=== PATIENT | male | born 1975 | race Caucasian/White ===

== ENCOUNTER 2016-08-01 20:04 | Emergency (ER) | payer MEDICAID, OTHER ==
[~2016-08-01] VITALS: Ht 165.1 cm; Wt 97.5 kg
[~2016-08-01 20:04] MED LIST: /FENO14TA PO; ASPI325T PO; ASPI81CH PO; BLOOKIT20 XX; CELE20TA PO; DEPA500T2 PO; GEMF600T PO; GLIP10TA6 PO; GLUC500T PO; GLUC5TAB3 PO; HUMA100I3 SC; INSUHUMDS SC; INSULADS SC; INSULANT SC; LOPI600T PO; METF500T PO; NIAS1TAB PO; OMEG100011 PO; PERCOCET PO; TRIC145T PO; ZEST2.5T3 PO
[2016-08-01] MEDS ORDERED: ASPIRIN 81 MG CHEW TABLET As Ordered ONE (20:30)
[2016-08-01 20:42] LABS: BASO # 0.1 K/mm3 (0.0-0.2); BASO % 0.5 % (0.0-1.0); EOS # 0.3 K/mm3 (0.0-0.50); LARGE UNSTAINED CELL # 0.3 K/mm3 (0.0-0.4); LARGE UNSTAINED CELL % 1.5 % (0.0-4.0); LYMPH # 3.6 K/mm3 (1.5-4.5); LYMPH % 21.6 % (24.0-44.0); MEAN CORPUSCULAR VOLUME 84.4 fl (80.0-96.0); MONO # 0.6 K/mm3 (0.0-0.8); MONO % 3.6 % (0.0-5.0); NEUTROPHILS # 11.7 K/mm3 (1.8-7.7); NEUTROPHILS % 70.9 % (36.0-66.0); PLATELET COUNT, AUTOMATED 431 k/mm3 (150-450); RED CELL DISTRIBUTION WIDTH 13.5 % (11.5-14.5); WHITE BLOOD COUNT 16.5 K/mm3 (4.0-10.0)
[2016-08-01 20:43] LABS: MEAN CORPUSCULAR HGB CONC 33.7 g/dl (32.0-36.5)
[2016-08-01 20:44] LABS: MEAN CORPUSCULAR HEMOGLOBIN 28.5 pg (27.0-33.0)
[2016-08-01 21:09] LABS: ANION GAP 19 MEQ/L (8-16); CARBON DIOXIDE LEVEL 13 MEQ/L (21-32); CHLORIDE LEVEL 94 MEQ/L (98-107); CREATININE FOR GFR 1.28 MG/DL (0.70-1.30); GLOMERULAR FILTRATION RATE > 60.0 (>60); SODIUM LEVEL 126 MEQ/L (136-145)
[2016-08-01] MEDS ORDERED: MORPHINE 4 MG/ML 1ML SYRINGE As Ordered ONE (21:21)
[2016-08-01] MEDS ORDERED: ONDANSETRON 4MG/2ML VIAL (J2405) As Ordered ONE (21:21)
[2016-08-01 21:22] LABS: GLUCOSE, FASTING 539 MG/DL (70-105)
[2016-08-01] MEDS ORDERED: HumuLIN R (REGULAR) INSULIN (NovoLIN R) **100U/ML** PER UNIT As Ordered ONE (21:41)
[2016-08-01 22:37] LABS: ALBUMIN 3.3 GM/DL (3.2-5.2); ALBUMIN/GLOBULIN RATIO 1.06 (1.00-1.93); BLOOD UREA NITROGEN 21 MG/DL (7-18); TOTAL PROTEIN 6.4 GM/DL (6.4-8.2)
--- NOTE | 2016-08-01 22:40 | REPUSA ---
CLINICAL HISTORY: Biliary colic. TECHNIQUE: Realtime sonographic images were obtained in multiple projections. COMMENTS: The liver is of normal size, parenchyma demonstrates increased echogenicity. No discrete hepatic mass is seen. There is no intra or extrahepatic biliary ductal dilatation. CBD measures 3.8 mm. The gallbladder is partially contracted otherwise unremarkable. The gallbladder wall is not thickened and there is no pe richolecystic fluid. There is no abdominal ascites. The right kidney measures 13.1 cm and unremarkable. IMPRESSION: Echogenic liver noted which may be secondary to benign steatosis or chronic liver disease. Thank you for your kind referral of this patient.
[2016-08-01 22:42] LABS: ALKALINE PHOSPHATASE 123 U/L (45-117); AST/SGOT 43 U/L (15-37)
[2016-08-01 23:31] LABS: ANION GAP 9 MEQ/L (8-16); CARBON DIOXIDE LEVEL 23 MEQ/L (21-32); CHLORIDE LEVEL 97 MEQ/L (98-107); CREATININE FOR GFR 1.18 MG/DL (0.70-1.30); GLOMERULAR FILTRATION RATE > 60.0 (>60); SODIUM LEVEL 129 MEQ/L (136-145)
[2016-08-01 23:58] LABS: BLOOD UREA NITROGEN 21 MG/DL (7-18); CALCIUM LEVEL 7.6 MG/DL (8.5-10.1)
[2016-08-01 23:59] LABS: GLUCOSE, FASTING 485 MG/DL (70-105)
[2016-08-02] LABS: POTASSIUM SERUM 4.3 MEQ/L (3.5-5.1)
[2016-08-02] MEDS ORDERED: PERCOCET 5MG/325MG TAB As Ordered ONE ×2 (00:20→02:02)
[2016-08-02] MEDS ORDERED: GI COCKTAIL 50ML BTL(HYOSCYAMINE/MAALOX/LIDOCAINE VISCOUS)(1:3:1) As Ordered ONE (01:02)
[2016-08-02] MEDS ORDERED: NIAC1TAB PO (01:33)
[2016-08-02] MEDS ORDERED: RANI150T PO (01:33)
[2016-08-02] MEDS ORDERED: FISH1000 PO ×2 (01:33)
[2016-08-02] MEDS ORDERED: METF1000 PO (01:33)
[2016-08-02] MEDS ORDERED: FENO134C PO (01:33)
[2016-08-02] MEDS ORDERED: INSUDET SC (01:33)
[2016-08-02] MEDS ORDERED: OXYCODONE/APAP 5MG/325MG(BULK) 1 TAB TAB As Ordered ONE (02:31)
--- NOTE | 2016-08-02 02:43 | EDDOCDS ---
Nurse's Notes [facility] Name: Grover Lee Age: 41 yrs Sex: Male : 1975 Arrival Date: 08/01/2016 Time: 20:04 Bed Admit Hold Private MD: Israel Eason M. Diagnosis: Chest pain, unspecified;Generalized abdominal pain;Hyperglycemia, unspecified Presentation: 08/01 20:13 Presenting complaint: Patient states: chest pressure started last night, thought it was [facility] indigestion but it hasn't gone away. Mid central 01/28. Aspirin was not taken prior to arrival. Adult Sepsis Screening: The patient does not have new or worsening altered mentation. Patient's respiratory rate is less than 22. Systolic blood pressure is greater than 100. Patient has a qSOFA score of 0- Negative Sepsis Screen. Suicide/Homicide risk assessment- the patient denies having any suicidal and/or homicidal ideations and does not present with any other emotional, behavioral or mental health complaints. 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 Transition of care: patient was not received from another setting of care. 20:13 Acuity: ALEKSANDR Level 2 [facility] 20:13 Method Of Arrival: Walkin/Carried/Asstd [facility] Triage Assessment: 20:18 General: Appears in no apparent distress, Behavior is cooperative. Pain: Location: [facility] chest Pain currently is 7 out of 10 on a pain scale. HIV screening NA for this visit Offered previously. Cardiovascular: Chest pain is described as Pain is 6 out of 10 on a pain scale. radiates Does not radiate. episodes are continuous began last night. Respiratory: Airway is patent Respiratory effort is even, unlabored, Respiratory pattern is regular, symmetrical. Historical: - Allergies: no known allergies; - Home Meds: 1. aspirin 325 mg Oral tab 1 tab once daily (Last dose: 07/31/2016) 2. gemfibrozil 600 mg Oral tab 1 tab 2 times per day (Last dose: 08/01/2016 09:00) 3. Humalog 100 unit/mL Sub-Q soln (Last dose: 07/31/2016) 4. metformin 1,000 mg oral tab 2 times per day (Last dose: 08/01/2016 09:00) 5. Niaspan Extended-Release 500 mg oral Tb24 1 tab once daily (Last dose: 07/31/2016) 6. fenofibrate oral 134 mg oral nightly (Last dose: 07/31/2016) 7. Fish Oil 1,000 mg Oral cap three times a day (Last dose: 08/01/2016 09:00) 8. ranitidine HCl 150 mg Oral tab 1 tab 2 times per day (Last dose: 08/01/2016 09:00) 9. Levomer 36 units twice daily (Last dose: 08/01/2016 09:00) - PMHx: Diabetes - IDDM: controlled; Hypercholesterolemia; Hypertension; Pancreatitis; - PSHx: Hernia repair- Umbilical; - Social history: Smoking status: Patient uses tobacco products, light tobacco smoker. No barriers to communication noted. - Family history: Not pertinent. - : The pt / caregiver states he / she is not on anticoagulants. Home medication list is obtained from the patient, family members. - Exposure Risk Screening:: None identified. Screenin:02 Screening information is obtained from the patient. Fall risk: No risks identified. cf2 Assistance ADL's: requires no assistance with activities of daily living. Abuse/DV Screen: The patient / caregiver reports he/she is: not in a situation that causes fear, pain or injury. Nutritional screening: No deficits noted. Advance Directives: Further advance directive information is declined. home support is adequate. Assessment: 21:02 General: Appears in no apparent distress, comfortable, Behavior is appropriate for age, cf2 cooperative. Pain: Location: abdomen. Neurological: No deficits noted. EENT: No deficits noted. Cardiovascular: Rhythm is sinus rhythm. Respiratory: No deficits noted. GI: No deficits noted. : No deficits noted. Derm: No deficits noted. Musculoskeletal: No deficits noted. Injury Description: No known injury. 21:29 General:. cf2 08/02 02:40 Reassessment: Patient appears in no apparent distress at this time. Patient denies pain cf2 at this time. Patient states feeling better. Patient states symptoms have improved. Adult Sepsis Screening: The patient does not have new or worsening altered mentation. Patient's respiratory rate is less than 22. Systolic blood pressure is greater than 100. Patient has a qSOFA score of 0- Negative Sepsis Screen. Vital Signs: 08/01 20:06 BP 157 / 88; Pulse 94; Resp 16; Temp 98.8(O); Pulse Ox 95% ; Weight 97.52 kg; Height 5 cmb ft. 5 in. (165.10 cm); Pain 7/10; 08/02 02:33 BP 151 / 75; Pulse 18; Resp 94; Temp 96.7(O); Pulse Ox 96% on R/A; Pain 0/10; leena 08/01 20:06 Body Mass Index 35.78 (97.52 kg, 165.10 cm) cmb Vitals: 08/01 20:06 Log In Time: August 01, 2016 at 20:04. RN notified that patient meets Red Flag cmb criteria. ED Course: 20:06 Patient visited by Melina Sanders. cmb 20:06 Israel Eason is Private Physician. cmb 20:06 Patient moved to [facility] 20:11 Patient moved to [facility] 20:14 Triage Initiated [facility] 20:20 The patient / caregiver is instructed regarding the plan of care and ED course. Patient dsf has correct armband on for positive identification. Placed in gown. Bed in low position. Call light in reach. Side rails up X2. monitoring engineer on. Pulse ox on. NIBP on. 20:20 Inserted saline lock: 18 gauge in right antecubital area The patient tolerated the dsf procedure well. 20:23 Rajani Hardy RN is Primary Nurse. cf2 20:23 Funmilayo Chavarria MD is Attending Physician. fg 20:23 Patient visited by Rajani Hardy RN. cf2 20:23 Patient visited by Funmilayo Chavarria MD. fg 20:29 EKG done. (by ED staff). Reviewed by Funmilayo Chavarria MD. leena 21:02 Patient visited by Rajani Hardy,MASTER. cf2 21:02 No procedures done that require assistance. cf2 21:23 Notified attending ED physician of change in patient condition. Critical lab value. cz glucose 539. 21:29 Patient visited by Rajani Hardy RN. cf2 21:39 Patient visited by Rajani Hardy,MASTER. cf2 21:42 Patient moved to [facility] br3 21:56 Patient visited by Rajani Hardy RN. cf2 22:08 Patient moved to br 22:09 LIVER PROFILE Sent. dsf 22:09 LIPASE Sent. dsf 22:15 Patient name changed from Grover\S\\S\[place]\S\ to Grover\S\ \S\Jesus. EDMS 22:15 [place] [place] Agreement was scanned into [employer] and attached to record. zo 22:34 Patient visited by Rajani Hardy RN. cf2 22:50 BMP Sent. cf2 23:36 Patient visited by Rajani Hardy RN. cf2 23:47 US Gallbladder Returned. EDMS 23:56 Patient visited by Rajani Hardy RN. cf2 08/02 00:00 Notified attending ED physician of Critical lab value. glucose 485. cz 00:27 Salma Eason is Hospitalizing Provider. fg 00:29 Patient moved to Admit Hold cz 01:25 Patient visited by Rajani Hardy RN. cf2 02:00 Patient visited by Rajani Hardy RN. cf2 02:07 Patient visited by Rajani Hardy RN. cf2 02:20 Israel Eason is Referral Physician. fg 02:33 Patient visited by Alessandra Lal PCA. leena 02:40 Discontinued lock. cf2 Administered Medications: 08/01 20:40 Drug: Aspirin 324 mg [aspirin 81 mg chewable tablet (4 tabs)] Route: PO; cf2 21:24 Drug: morphine 4 mg [morphine 4 mg/mL intravenous cartridge (1 mL)] Route: IVP; Site: cf2 left antecubital; 08/02 02:40 Follow up: Response: No significant change. cf2 08/01 21:24 Drug: Ondansetron 4 mg Route: IVP; Site: left antecubital; cf2 08/02 02:08 Follow up: Response: Pain is decreased cf2 08/01 21:39 Drug: NS 0.9% 1000 ml [sodium chloride 0.9 % intravenous solution] Route: IV; Rate: cf2 bolus; Site: left antecubital; 21:40 Drug: Insulin Regular Human 10 units [insulin regular human 100 unit/mL injection cf2 solution (0.1 mL)] {Co-Signature: jp6 (Jaci Pennington RN).} Route: IVP; Site: left antecubital; 01/12 02:08 Follow up: Response: No significant change. cf2 00:20 Drug: oxyCODONE-acetaminophen 1 tabs [oxycodone-acetaminophen 5 mg-325 mg tablet (1 cf2 tabs)] Route: PO; 02:08 Follow up: Response: Pain is decreased cf2 01:05 Drug: GI Cocktail - (Alum-Mag Hydroxide-Simeth Suspension 225 mg-200 mg-25 mg/5 mL 30 cf2 ml, Lidocaine Liquid 2 % 10 ml, Hyoscyamine Liquid 10 ml) Route: PO; 02:07 Follow up: Response: No significant change. cf2 02:07 Drug: oxyCODONE-acetaminophen 1 tabs [oxycodone-acetaminophen 5 mg-325 mg tablet (1 cf2 tabs)] Route: PO; 02:40 Follow up: Response: No significant change. cf2 02:33 Drug: oxyCODONE-acetaminophen 4 pack 1 packets [oxycodone-acetaminophen 5 mg-325 mg cf2 tablet (1 tabs)] {Co-Signature: jp6 (Jaci Pennington RN).} Route: PO; 02:40 Follow up: Response: No Adverse Reaction cf2 Order Results: Lab Order: B-Type Natiuretic Peptide; SPEC'M 08/01/16 20:13 Test: BRAIN NATRIURETIC PEPTIDE; Value: 5.7; Range: <100; Units: PG/ML; Status: F Lab Order: Basic Metabolic Profile; SPEC'M 08/01/16 20:13 Test: AST/SGOT; Range: 15-37; Units: U/L; Status: I Test: ALT/SGPT; Range: 12-78; Units: U/L; Status: I Test: ALKALINE PHOSPHATASE; Range: 45-117; Units: U/L; Status: I Test: BILIRUBIN,TOTAL; Range: 0.2-1.0; Units: MG/DL; Status: I Test: BILIRUBIN,DIRECT; Range: 0.0-0.2; Units: MG/DL; Status: I Test: TOTAL PROTEIN; Range: 6.4-8.2; Units: GM/DL; Status: I Test: ALBUMIN; Range: 3.2-5.2; Units: GM/DL; Status: I Test: ALBUMIN/GLOBULIN RATIO; Range: 1.00-1.93; Status: I Test: GLUCOSE, FASTING; Value: 539; Range: 70-105; Abnormal: Above upper panic limits; Units: MG/DL; Status: F Test: BLOOD UREA NITROGEN; Value: 21; Range: 7-18; Abnormal: Above high normal; Units: MG/DL; Status: F Test: CREATININE FOR GFR; Value: 1.28; Range: 0.70-1.30; Units: MG/DL; Status: F Test: GLOMERULAR FILTRATION RATE; Value: > 60.0; Range: >60; Status: F Test: SODIUM LEVEL; Value: 126; Range: 136-145; Abnormal: Below low normal; Units: MEQ/L; Status: F Test: POTASSIUM SERUM; Value: 4.0; Range: 3.5-5.1; Units: MEQ/L; Status: F Test: CHLORIDE LEVEL; Value: 94; Range: 98-107; Abnormal: Below low normal; Units: MEQ/L; Status: F Test: CARBON DIOXIDE LEVEL; Value: 13; Range: 21-32; Abnormal: Below low normal; Units: MEQ/L; Status: F Test: ANION GAP; Value: 19; Range: 8-16; Abnormal: Above high normal; Units: MEQ/L; Status: F Test: CALCIUM LEVEL; Value: TNP; Range: 8.5-10.1; Units: MG/DL; Status: F Test Note: ; Units are mL/min/1.73 m2 Chronic Kidney Disease Staging per NKF: Stage I & II GFR >=60 Normal to Mildly Decreased Stage III GFR 30-59 Moderately Decreased Stage IV GFR 15-29 Severely Decreased Stage V GFR <15 Very Little GFR Left ESRD GFR <15 on BANDER Test: LIPASE; Range: 73-393; Units: U/L; Status: I Lab Order: CBC with Diff; SPEC'M 08/01/16 20:13 Test: WHITE BLOOD COUNT; Value: 16.5; Range: 4.0-10.0; Abnormal: Above high normal; Units: K/mm3; Status: F Test: RED BLOOD COUNT; Value: 4.74; Range: 4.30-6.10; Units: M/mm3; Status: F Test: HEMOGLOBIN; Value: 13.5; Range: 14.0-18.0; Abnormal: Below low normal; Units: g/dl; Status: F Test: HEMATOCRIT; Value: 40.0; Range: 42.0-52.0; Abnormal: Below low normal; Units: %; Status: F Test: MEAN CORPUSCULAR VOLUME; Value: 84.4; Range: 80.0-96.0; Units: fl; Status: F Test: MEAN CORPUSCULAR HEMOGLOBIN; Value: 28.5; Range: 27.0-33.0; Units: pg; Status: F Test: MEAN CORPUSCULAR HGB CONC; Value: 33.7; Range: 32.0-36.5; Units: g/dl; Status: F Test: RED CELL DISTRIBUTION WIDTH; Value: 13.5; Range: 11.5-14.5; Units: %; Status: F Test: PLATELET COUNT, AUTOMATED; Value: 431; Range: 150-450; Units: k/mm3; Status: F Test: NEUTROPHILS %; Value: 70.9; Range: 36.0-66.0; Abnormal: Above high normal; Units: %; Status: F Test: LYMPH %; Value: 21.6; Range: 24.0-44.0; Abnormal: Below low normal; Units: %; Status: F Test: MONO %; Value: 3.6; Range: 0.0-5.0; Units: %; Status: F Test: EOS %; Value: 2.0; Range: 0.0-3.0; Units: %; Status: F Test: BASO %; Value: 0.5; Range: 0.0-1.0; Units: %; Status: F Test: LARGE UNSTAINED CELL %; Value: 1.5; Range: 0.0-4.0; Units: %; Status: F Test: NEUTROPHILS #; Value: 11.7; Range: 1.8-7.7; Abnormal: Above high normal; Units: K/mm3; Status: F Test: LYMPH #; Value: 3.6; Range: 1.5-4.5; Units: K/mm3; Status: F Test: MONO #; Value: 0.6; Range: 0.0-0.8; Units: K/mm3; Status: F Test: EOS #; Value: 0.3; Range: 0.0-0.50; Units: K/mm3; Status: F Test: BASO #; Value: 0.1; Range: 0.0-0.2; Units: K/mm3; Status: F Test: LARGE UNSTAINED CELL #; Value: 0.3; Range: 0.0-0.4; Units: K/mm3; Status: F Lab Order: Cardiac Injury Profile; SPEC08/01/16 20:13 Test: CPK CREATINE PHOSPHOKINASE; Value: 106; Range: 39-308; Units: U/L; Status: F Test: CK-MB VALUE MASS; Value: 1.0; Range: 0.0-3.6; Units: NG/ML; Status: F Test: MB/CK RELATIVE INDEX; Value: 0.94; Range: < OR =4; Status: F Test Note: ; DIAGNOSIS CRITERIA MMB ng/ml Relative Index (RI) NON-AMI < or = 5 N/A BENJAMIN ZONE > 5 < or = 4 AMI > 5 > 4 Lab Order: Troponin; 08/01/16 20:13 Test: TROPONIN I; Value: < 0.02; Range: < 0.10; Units: NG/ML; Status: F Test Note: ; Troponin I Reference Interval for A Green Night's Sleep LOCI: 99th Percentile= 0.00-0.045 ng/ml Risk Stratification: <= 0.10 ng/ml Decreased Risk for Adverse Clinical Events. 0.10-1.50 ng/ml Increased Risk for Adverse Clinical Events. Evaluation of additional criterion and/or repeat testing in 2-6 hours is suggested to rule out myocardial damage. >= 1.50 ng/ml Indicative of Myocardial Injury. Lab Order: LIPASE; SPEC08/01/16 20:13 Test: LIPASE; Value: 180; Range: 73-393; Units: U/L; Status: F Lab Order: LIVER PROFILE; 08/01/16 20:13 Test: AST/SGOT; Value: 43; Range: 15-37; Abnormal: Above high normal; Units: U/L; Status: F Test: ALT/SGPT; Value: TNP; Range: 12-78; Units: U/L; Status: F Test: ALKALINE PHOSPHATASE; Value: 123; Range: 45-117; Abnormal: Above high normal; Units: U/L; Status: F Test: BILIRUBIN,TOTAL; Value: TNP; Range: 0.2-1.0; Units: MG/DL; Status: F Test: BILIRUBIN,DIRECT; Value: TNP; Range: 0.0-0.2; Units: MG/DL; Status: F Test: TOTAL PROTEIN; Value: 6.4; Range: 6.4-8.2; Units: GM/DL; Status: F Test: ALBUMIN; Value: 3.3; Range: 3.2-5.2; Units: GM/DL; Status: F Test: ALBUMIN/GLOBULIN RATIO; Value: 1.06; Range: 1.00-1.93; Status: F Test Note: ; Testing was performed on a lipemic specimen. Suggest recollection of a FASTING specimen for more accurate test results. UNABLE TO OBTAIN RESULTS DUE TO LIPEMIA Lab Order: [facility]; SPEC'M 08/01/16 23:06 Test: GLUCOSE, FASTING; Value: 485; Range: 70-105; Abnormal: Above upper panic limits; Units: MG/DL; Status: F Test: BLOOD UREA NITROGEN; Value: 21; Range: 7-18; Abnormal: Above high normal; Units: MG/DL; Status: F Test: CREATININE FOR GFR; Value: 1.18; Range: 0.70-1.30; Units: MG/DL; Status: F Test: GLOMERULAR FILTRATION RATE; Value: > 60.0; Range: >60; Status: F Test: SODIUM LEVEL; Value: 129; Range: 136-145; Abnormal: Below low normal; Units: MEQ/L; Status: F Test: POTASSIUM SERUM; Value: 4.3; Range: 3.5-5.1; Units: MEQ/L; Status: F Test: CHLORIDE LEVEL; Value: 97; Range: 98-107; Abnormal: Below low normal; Units: MEQ/L; Status: F Test: CARBON DIOXIDE LEVEL; Value: 23; Range: 21-32; Units: MEQ/L; Status: F Test: ANION GAP; Value: 9; Range: 8-16; Units: MEQ/L; Status: F Test: CALCIUM LEVEL; Value: 7.6; Range: 8.5-10.1; Abnormal: Below low normal; Units: MG/DL; Status: F Test Note: ; Testing was performed on a lipemic specimen. Suggest recollection of a FASTING specimen for more accurate test results. Lab Order: Fingerstick Blood Sugar; SPEC'M 08/01/16 22:46 Test: BEDSIDE GLUCOSE; Value: 317; Range: 70-105; Abnormal: Above high normal; Units: MG/DL; Status: F Lab Order: Fingerstick Blood Sugar; SPEC'M 08/02/16 00:08 Test: BEDSIDE GLUCOSE; Value: 271; Range: 70-105; Abnormal: Above high normal; Units: MG/DL; Status: F Radiology Order: US Gallbladder Test: US Gallbladder REASON FOR EXAMINATION: Biliary Colic; ; CLINICAL HISTORY: Biliary colic.; TECHNIQUE: Realtime sonographic images were obtained in multiple projections.; COMMENTS:; The liver is of normal size, parenchyma demonstrates increased echogenicity. No discrete hepatic mass; is seen.; There is no intra or extrahepatic biliary ductal dilatation. CBD measures 3.8 mm. The gallbladder is; partially contracted otherwise unremarkable. The gallbladder wall is not thickened and there is no pe; richolecystic fluid. There is no abdominal ascites.; The right kidney measures 13.1 cm and unremarkable.; IMPRESSION:; Echogenic liver noted which may be secondary to benign steatosis or chronic liver disease.; Thank you for your kind referral of this patient.; ; Outcome: 00:28 Decision to Hospitalize by Provider. fg 02:21 Discharge ordered by Provider. fg 02:40 Discharge Assessment: Patient awake, alert and oriented x 3. No cognitive and/or cf2 functional deficits noted. Patient verbalized understanding of disposition instructions. Patient awake and alert. Oriented to person, place and time. Patient verbalized understanding of disposition instructions. patient administered narcotics - yes. Pt provided with safe discharge. The following High Risk Discharge criteria are identified: None. Discharged to home. Condition: good Condition: stable Condition: improved. Discharge instructions given to patient, Instructed on discharge instructions, Demonstrated understanding of instructions, medications, Prescriptions given X 2. CT Study completed. Ultrasound Study completed. Property :Personal belongings accompany Pt. 02:42 Patient left the ED. cf2 Signatures: Dispatcher [employer] EDMS Taj Lawrence RN RN cz Olin, Zoeann zo Raymond, Brianne br3 Hali, Alessandra, BOATWRIGHT BOATWRIGHT leena Josee Garcia,RN RN Amarilis Redman,RN RN rosa maria Melina Sanders Frances, MD MD Rajani Hardy RN RN cf2 Jaci Pennington RN [email or web address] MATTD
--- NOTE | 2016-08-02 02:43 | EDDOCDS ---
Physician Documentation [facility] Name: Grover Lee Age: 41 yrs Sex: Male : 1975 Arrival Date: 08/01/2016 Time: 20:04 Bed Admit Hold Private MD: Israel Eason M. Disposition: 08/02/16 02:21 Discharged to Home/Self Care. Impression: Chest pain, unspecified, Generalized abdominal pain, Hyperglycemia, unspecified. - Condition is Stable. - Discharge Instructions: Abdominal Pain, Adult, Nonspecific Chest Pain, Hyperglycemia, Wldr-oo-Laim. - Prescriptions for omeprazole 40 mg Oral capsule,delayed release(DR/EC) - take 1 capsule by ORAL route once daily before a meal; 30 capsule. - Medication Reconciliation, Local Pharmacy Hours form. - Follow up: Israel Eason; When: Call to arrange an appointment; Reason: Continuance of care. - Problem is new. - Symptoms have improved. Historical: - Allergies: no known allergies; - Home Meds: 1. aspirin 325 mg Oral tab 1 tab once daily (Last dose: 07/31/2016) 2. gemfibrozil 600 mg Oral tab 1 tab 2 times per day (Last dose: 08/01/2016 09:00) 3. Humalog 100 unit/mL Sub-Q soln (Last dose: 07/31/2016) 4. metformin 1,000 mg oral tab 2 times per day (Last dose: 08/01/2016 09:00) 5. Niaspan Extended-Release 500 mg oral Tb24 1 tab once daily (Last dose: 07/31/2016) 6. fenofibrate oral 134 mg oral nightly (Last dose: 07/31/2016) 7. Fish Oil 1,000 mg Oral cap three times a day (Last dose: 08/01/2016 09:00) 8. ranitidine HCl 150 mg Oral tab 1 tab 2 times per day (Last dose: 08/01/2016 09:00) 9. Levomer 36 units twice daily (Last dose: 08/01/2016 09:00) - PMHx: Diabetes - IDDM: controlled; Hypercholesterolemia; Hypertension; Pancreatitis; - PSHx: Hernia repair- Umbilical; - Social history: Smoking status: Patient uses tobacco products, light tobacco smoker. No barriers to communication noted. - Family history: Not pertinent. - : The pt / caregiver states he / she is not on anticoagulants. Home medication list is obtained from the patient, family members. - Exposure Risk Screening:: None identified. Vital Signs: 08/01 20:06 BP 157 / 88; Pulse 94; Resp 16; Temp 98.8(O); Pulse Ox 95% ; Weight 97.52 kg / 214.99 cmb lbs; Height 5 ft. 5 in. (165.10 cm); Pain 7/10; 08/02 02:33 BP 151 / 75; Pulse 18; Resp 94; Temp 96.7(O); Pulse Ox 96% on R/A; Pain 0/10; leena 08/01 20:06 Body Mass Index 35.78 (97.52 kg, 165.10 cm) cmb MDM: 08/01 20:13 ECG WITH READING ER PHYS+CARDIAG ordered. EDMS 20:24 Aspirin Chewable Tablet 324 mg PO once ordered. fg 20:24 Site Surveyor/Pulse Ox/q 30 min VS ordered. fg 20:24 IV Saline Lock ordered. fg 20:24 Rhythm Strip to chart ordered. fg 20:24 Undress patient appropriately for examination ordered. fg 20:24 B-Type Natiuretic Peptide Ordered. EDMS 20:24 Basic Metabolic Profile Ordered. EDMS 20:24 CBC with Diff Ordered. EDMS 20:24 Cardiac Injury Profile Ordered. EDMS 20:24 Troponin Ordered. EDMS 20:24 portable chest Ordered. EDMS 21:13 US Gallbladder Ordered. EDMS 21:14 morphine 4 mg IVP once ordered. fg 21:14 Ondansetron 4 mg IVP once ordered. fg 21:21 Financial registration complete. zo 21:24 LIPASE Ordered. EDMS 21:24 LIVER PROFILE Ordered. EDMS 21:31 NS 0.9% 1000 ml IV at bolus once ordered. fg 21:31 Insulin Regular Human 10 units IVP once ordered. fg 22:15 [facility] [place] Payment Agreement was scanned into [email or web address] and attached to record. zo 22:22 BMP Ordered. EDMS 22:54 Fingerstick Blood Sugar Ordered. EDMS 08/02 00:16 oxyCODONE-acetaminophen 5 mg-325 mg 1 tabs PO once ordered. fg 00:27 Fingerstick Blood Sugar Ordered. EDMS 00:30 BED REQUEST+ADM ordered. EDMS 00:43 GI Cocktail - (Alum-Mag Hydroxide-Simeth 30 ml, Lidocaine 10 ml, Hyoscyamine 10 ml) PO fg once; Pre-mixed 50mL unit dose ordered. 02:02 oxyCODONE-acetaminophen 5 mg-325 mg 1 tabs PO once ordered. fg 02:19 oxyCODONE-acetaminophen 4 pack 5 mg-325 mg 1 packets PO once; Dispense with pt, take as fg per instruction on package ordered. Administered Medications: 08/01 20:40 Drug: Aspirin 324 mg [aspirin 81 mg chewable tablet (4 tabs)] Route: PO; cf2 21:24 Drug: morphine 4 mg [morphine 4 mg/mL intravenous cartridge (1 mL)] Route: IVP; Site: cf2 left antecubital; 08/02 02:40 Follow up: Response: No significant change. cf2 08/01 21:24 Drug: Ondansetron 4 mg Route: IVP; Site: left antecubital; cf2 08/02 02:08 Follow up: Response: Pain is decreased cf2 08/01 21:39 Drug: NS 0.9% 1000 ml [sodium chloride 0.9 % intravenous solution] Route: IV; Rate: cf2 bolus; Site: left antecubital; 21:40 Drug: Insulin Regular Human 10 units [insulin regular human 100 unit/mL injection cf2 solution (0.1 mL)] {Co-Signature: [email or web address] (Jaci Pennington RN).} Route: IVP; Site: left antecubital; 08/02 02:08 Follow up: Response: No significant change. cf2 00:20 Drug: oxyCODONE-acetaminophen 1 tabs [oxycodone-acetaminophen 5 mg-325 mg tablet (1 cf2 tabs)] Route: PO; 02:08 Follow up: Response: Pain is decreased cf2 01:05 Drug: GI Cocktail - (Alum-Mag Hydroxide-Simeth Suspension 225 mg-200 mg-25 mg/5 mL 30 cf2 ml, Lidocaine Liquid 2 % 10 ml, Hyoscyamine Liquid 10 ml) Route: PO; 02:07 Follow up: Response: No significant change. cf2 02:07 Drug: oxyCODONE-acetaminophen 1 tabs [oxycodone-acetaminophen 5 mg-325 mg tablet (1 cf2 tabs)] Route: PO; 02:40 Follow up: Response: No significant change. cf2 02:33 Drug: oxyCODONE-acetaminophen 4 pack 1 packets [oxycodone-acetaminophen 5 mg-325 mg cf2 tablet (1 tabs)] {Co-Signature: [email or web address] (Jaci Pennington RN).} Route: PO; 02:40 Follow up: Response: No Adverse Reaction cf2 Signatures: Dispatcher [employer] EDMS Pat Mazariegos JaneRN RN [facility] Funmilayo Chavarria MD MD Rajani Hardy RN RN cf2 Jaci Pennington RN [email or web address] The chart was reviewed and I authenticate all verbal orders and agree with the evaluation and treatment provided.Corrections: (The following items were deleted from the chart) 08/01 21:02 20:24 Chest, 2 view (PA\E\Lat)+XR ordered. EDMS EDMS 21:24 21:13 LIPASE+LAB ordered. EDMS EDMS 21:24 21:13 LIVER PROFILE+LAB ordered. EDMS EDMS Attachments: 22:15 [facility] [place] Payment Agreement zo MTDD
--- NOTE | 2016-08-02 08:14 | REP ---
Clinical: Chest pain . Comparison: 05/03/2015 . Findings: The mediastinum and cardiac silhouette are stable and within normal limits for portable technique. The lung palmer are clear without acute consolidation, effusion, or pneumothorax. Skeletal structures are intact. Impression: Normal portable chest x-ray Signed by Jeison Cisneros MD 08/02/2016 08:06 A
--- NOTE | 2016-08-03 07:15 | ECGEPIP ---
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
--- NOTE | 2016-08-04 03:43 | EDDOCDS ---
Nurse's Notes [facility] Name: Grover Elliott Age: 41 yrs Sex: Male : 1975 Arrival Date: 08/01/2016 Time: 20:04 Bed Admit Hold Private MD: Israel Eason M. Diagnosis: Chest pain, unspecified;Generalized abdominal pain;Hyperglycemia, unspecified Presentation: 08/01 20:13 Presenting complaint: Patient states: chest pressure started last night, thought it was [facility] indigestion but it hasn't gone away. [facility] central 01/28. Aspirin was not taken prior to arrival. Adult Sepsis Screening: The patient does not have new or worsening altered mentation. Patient's respiratory rate is less than 22. Systolic blood pressure is greater than 100. Patient has a qSOFA score of 0- Negative Sepsis Screen. Suicide/Homicide risk assessment- the patient denies having any suicidal and/or homicidal ideations and does not present with any other emotional, behavioral or mental health complaints. 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 Transition of care: patient was not received from another setting of care. 20:13 Acuity: ALEKSANDR Level 2 [facility] 20:13 Method Of Arrival: Walkin/Carried/Asstd [facility] Triage Assessment: 20:18 General: Appears in no apparent distress, Behavior is cooperative. Pain: Location: [facility] chest Pain currently is 7 out of 10 on a pain scale. HIV screening NA for this visit Offered previously. Cardiovascular: Chest pain is described as Pain is 6 out of 10 on a pain scale. radiates Does not radiate. episodes are continuous began last night. Respiratory: Airway is patent Respiratory effort is even, unlabored, Respiratory pattern is regular, symmetrical. Historical: - Allergies: no known allergies; - Home Meds: 1. aspirin 325 mg Oral tab 1 tab once daily (Last dose: 07/31/2016) 2. gemfibrozil 600 mg Oral tab 1 tab 2 times per day (Last dose: 08/01/2016 09:00) 3. Humalog 100 unit/mL Sub-Q soln (Last dose: 07/31/2016) 4. metformin 1,000 mg oral tab 2 times per day (Last dose: 08/01/2016 09:00) 5. Niaspan Extended-Release 500 mg oral Tb24 1 tab once daily (Last dose: 07/31/2016) 6. fenofibrate oral 134 mg oral nightly (Last dose: 07/31/2016) 7. Fish Oil 1,000 mg Oral cap three times a day (Last dose: 08/01/2016 09:00) 8. ranitidine HCl 150 mg Oral tab 1 tab 2 times per day (Last dose: 08/01/2016 09:00) 9. Levomer 36 units twice daily (Last dose: 08/01/2016 09:00) - PMHx: Diabetes - IDDM: controlled; Hypercholesterolemia; Hypertension; Pancreatitis; - PSHx: Hernia repair- Umbilical; - Social history: Smoking status: Patient uses tobacco products, light tobacco smoker. No barriers to communication noted. - Family history: Not pertinent. - : The pt / caregiver states he / she is not on anticoagulants. Home medication list is obtained from the patient, family members. - Exposure Risk Screening:: None identified. Screenin:02 Screening information is obtained from the patient. Fall risk: No risks identified. cf2 Assistance ADL's: requires no assistance with activities of daily living. Abuse/DV Screen: The patient / caregiver reports he/she is: not in a situation that causes fear, pain or injury. Nutritional screening: No deficits noted. Advance Directives: Further advance directive information is declined. home support is adequate. Assessment: 21:02 General: Appears in no apparent distress, comfortable, Behavior is appropriate for age, cf2 cooperative. Pain: Location: abdomen. Neurological: No deficits noted. EENT: No deficits noted. Cardiovascular: Rhythm is sinus rhythm. Respiratory: No deficits noted. GI: No deficits noted. : No deficits noted. Derm: No deficits noted. Musculoskeletal: No deficits noted. Injury Description: No known injury. 21:29 General:. cf2 08/02 02:40 Reassessment: Patient appears in no apparent distress at this time. Patient denies pain cf2 at this time. Patient states feeling better. Patient states symptoms have improved. Adult Sepsis Screening: The patient does not have new or worsening altered mentation. Patient's respiratory rate is less than 22. Systolic blood pressure is greater than 100. Patient has a qSOFA score of 0- Negative Sepsis Screen. Vital Signs: 08/01 20:06 BP 157 / 88; Pulse 94; Resp 16; Temp 98.8(O); Pulse Ox 95% ; Weight 97.52 kg; Height 5 cmb ft. 5 in. (165.10 cm); Pain 7/10; 08/02 02:33 BP 151 / 75; Pulse 18; Resp 94; Temp 96.7(O); Pulse Ox 96% on R/A; Pain 0/10; leena 08/01 20:06 Body Mass Index 35.78 (97.52 kg, 165.10 cm) cmb Vitals: 08/01 20:06 Log In Time: August 01, 2016 at 20:04. RN notified that patient meets Red Flag cmb criteria. ED Course: 20:06 Patient visited by Melina Sanders. cmb 20:06 Israel Eason is Private Physician. cmb 20:06 Patient moved to [facility] 20:11 Patient moved to [facility] 20:14 Triage Initiated [facility] 20:20 The patient / caregiver is instructed regarding the plan of care and ED course. Patient dsf has correct armband on for positive identification. Placed in gown. Bed in low position. Call light in reach. Side rails up X2. fire protection engineering technician on. Pulse ox on. NIBP on. 20:20 Inserted saline lock: 18 gauge in right antecubital area The patient tolerated the dsf procedure well. 20:23 Rajani Hardy RN is Primary Nurse. cf2 20:23 Funmilayo Chavarria MD is Attending Physician. fg 20:23 Patient visited by Rajani Hardy RN. cf2 20:23 Patient visited by Funmilayo Chavarria MD. fg 20:29 EKG done. (by ED staff). Reviewed by Funmilayo Chavarria MD. leena 21:02 Patient visited by Rajani Hardy,MASTER. cf2 21:02 No procedures done that require assistance. cf2 21:23 Notified attending ED physician of change in patient condition. Critical lab value. cz glucose 539. 21:29 Patient visited by Rajani Hardy RN. cf2 21:39 Patient visited by Rajani Hardy,MASTER. cf2 21:42 Patient moved to [facility] br3 21:56 Patient visited by Rajani Hardy RN. cf2 22:08 Patient moved to br 22:09 LIVER PROFILE Sent. dsf 22:09 LIPASE Sent. dsf 22:15 Patient name changed from Grover\S\\S\[place]\S\ to Grover\S\ \S\[place]. EDMS 22:15 [facility] Payment Agreement was scanned into [employer] and attached to record. zo 22:34 Patient visited by Rjaani Haryd,MASTER. cf2 22:50 BMP Sent. cf2 23:36 Patient visited by Rajani Hardy RN. cf2 23:47 US Gallbladder Returned. EDMS 23:56 Patient visited by Rajani Hardy RN. cf2 08/02 00:00 Notified attending ED physician of Critical lab value. glucose 485. cz 00:27 Salma Eason is Hospitalizing Provider. fg 00:29 Patient moved to Admit Hold cz 01:25 Patient visited by Rajani Hardy RN. cf2 02:00 Patient visited by Rajani Hardy RN. cf2 02:07 Patient visited by Rajani Hardy RN. cf2 02:20 Israel Eason is Referral Physician. fg 02:33 Patient visited by Alessandra Lal PCA. leena 02:40 Discontinued lock. cf2 08:33 portable chest Returned. EDMS 09:03 T-Sheet-- Draft Copy was scanned into [employer] and attached to record. gb 09:03 ECG/EKG was scanned into [employer] and attached to record. gb 09:03 Radiology Report was scanned into [employer] and attached to record. gb 08/03 07:41 EKG-ADULT Returned. EDMS Administered Medications: 08/01 20:40 Drug: Aspirin 324 mg [aspirin 81 mg chewable tablet (4 tabs)] Route: PO; cf2 21:24 Drug: morphine 4 mg [morphine 4 mg/mL intravenous cartridge (1 mL)] Route: IVP; Site: cf2 left antecubital; 08/02 02:40 Follow up: Response: No significant change. cf2 08/01 21:24 Drug: Ondansetron 4 mg Route: IVP; Site: left antecubital; cf2 08/02 02:08 Follow up: Response: Pain is decreased cf2 08/01 21:39 Drug: NS 0.9% 1000 ml [sodium chloride 0.9 % intravenous solution] Route: IV; Rate: cf2 bolus; Site: left antecubital; 21:40 Drug: Insulin Regular Human 10 units [insulin regular human 100 unit/mL injection cf2 solution (0.1 mL)] {Co-Signature: jp6 (Jaci Pennington RN).} Route: IVP; Site: left antecubital; 08/02 02:08 Follow up: Response: No significant change. cf2 00:20 Drug: oxyCODONE-acetaminophen 1 tabs [oxycodone-acetaminophen 5 mg-325 mg tablet (1 cf2 tabs)] Route: PO; 02:08 Follow up: Response: Pain is decreased cf2 01:05 Drug: GI Cocktail - (Alum-Mag Hydroxide-Simeth Suspension 225 mg-200 mg-25 mg/5 mL 30 cf2 ml, Lidocaine Liquid 2 % 10 ml, Hyoscyamine Liquid 10 ml) Route: PO; 02:07 Follow up: Response: No significant change. cf2 02:07 Drug: oxyCODONE-acetaminophen 1 tabs [oxycodone-acetaminophen 5 mg-325 mg tablet (1 cf2 tabs)] Route: PO; 02:40 Follow up: Response: No significant change. cf2 02:33 Drug: oxyCODONE-acetaminophen 4 pack 1 packets [oxycodone-acetaminophen 5 mg-325 mg cf2 tablet (1 tabs)] {Co-Signature: jp6 (Jaci Pennington RN).} Route: PO; 02:40 Follow up: Response: No Adverse Reaction cf2 Order Results: Lab Order: B-Type Natiuretic Peptide; SPEC'M 08/01/16 20:13 Test: BRAIN NATRIURETIC PEPTIDE; Value: 5.7; Range: <100; Units: PG/ML; Status: F Lab Order: Basic Metabolic Profile; SPEC'M 08/01/16 20:13 Test: AST/SGOT; Range: 15-37; Units: U/L; Status: I Test: ALT/SGPT; Range: 12-78; Units: U/L; Status: I Test: ALKALINE PHOSPHATASE; Range: 45-117; Units: U/L; Status: I Test: BILIRUBIN,TOTAL; Range: 0.2-1.0; Units: MG/DL; Status: I Test: BILIRUBIN,DIRECT; Range: 0.0-0.2; Units: MG/DL; Status: I Test: TOTAL PROTEIN; Range: 6.4-8.2; Units: GM/DL; Status: I Test: ALBUMIN; Range: 3.2-5.2; Units: GM/DL; Status: I Test: ALBUMIN/GLOBULIN RATIO; Range: 1.00-1.93; Status: I Test: GLUCOSE, FASTING; Value: 539; Range: 70-105; Abnormal: Above upper panic limits; Units: MG/DL; Status: F Test: BLOOD UREA NITROGEN; Value: 21; Range: 7-18; Abnormal: Above high normal; Units: MG/DL; Status: F Test: CREATININE FOR GFR; Value: 1.28; Range: 0.70-1.30; Units: MG/DL; Status: F Test: GLOMERULAR FILTRATION RATE; Value: > 60.0; Range: >60; Status: F Test: SODIUM LEVEL; Value: 126; Range: 136-145; Abnormal: Below low normal; Units: MEQ/L; Status: F Test: POTASSIUM SERUM; Value: 4.0; Range: 3.5-5.1; Units: MEQ/L; Status: F Test: CHLORIDE LEVEL; Value: 94; Range: 98-107; Abnormal: Below low normal; Units: MEQ/L; Status: F Test: CARBON DIOXIDE LEVEL; Value: 13; Range: 21-32; Abnormal: Below low normal; Units: MEQ/L; Status: F Test: ANION GAP; Value: 19; Range: 8-16; Abnormal: Above high normal; Units: MEQ/L; Status: F Test: CALCIUM LEVEL; Value: TNP; Range: 8.5-10.1; Units: MG/DL; Status: F Test Note: ; Units are mL/min/1.73 m2 Chronic Kidney Disease Staging per NKF: Stage I & II GFR >=60 Normal to Mildly Decreased Stage III GFR 30-59 Moderately Decreased Stage IV GFR 15-29 Severely Decreased Stage V GFR <15 Very Little GFR Left ESRD GFR <15 on PERSONAL BANKING ASSISTANT Test: LIPASE; Range: 73-393; Units: U/L; Status: I Lab Order: CBC with Diff; SPEC'M 08/01/16 20:13 Test: WHITE BLOOD COUNT; Value: 16.5; Range: 4.0-10.0; Abnormal: Above high normal; Units: K/mm3; Status: F Test: RED BLOOD COUNT; Value: 4.74; Range: 4.30-6.10; Units: M/mm3; Status: F Test: HEMOGLOBIN; Value: 13.5; Range: 14.0-18.0; Abnormal: Below low normal; Units: g/dl; Status: F Test: HEMATOCRIT; Value: 40.0; Range: 42.0-52.0; Abnormal: Below low normal; Units: %; Status: F Test: MEAN CORPUSCULAR VOLUME; Value: 84.4; Range: 80.0-96.0; Units: fl; Status: F Test: MEAN CORPUSCULAR HEMOGLOBIN; Value: 28.5; Range: 27.0-33.0; Units: pg; Status: F Test: MEAN CORPUSCULAR HGB CONC; Value: 33.7; Range: 32.0-36.5; Units: g/dl; Status: F Test: RED CELL DISTRIBUTION WIDTH; Value: 13.5; Range: 11.5-14.5; Units: %; Status: F Test: PLATELET COUNT, AUTOMATED; Value: 431; Range: 150-450; Units: k/mm3; Status: F Test: NEUTROPHILS %; Value: 70.9; Range: 36.0-66.0; Abnormal: Above high normal; Units: %; Status: F Test: LYMPH %; Value: 21.6; Range: 24.0-44.0; Abnormal: Below low normal; Units: %; Status: F Test: MONO %; Value: 3.6; Range: 0.0-5.0; Units: %; Status: F Test: EOS %; Value: 2.0; Range: 0.0-3.0; Units: %; Status: F Test: BASO %; Value: 0.5; Range: 0.0-1.0; Units: %; Status: F Test: LARGE UNSTAINED CELL %; Value: 1.5; Range: 0.0-4.0; Units: %; Status: F Test: NEUTROPHILS #; Value: 11.7; Range: 1.8-7.7; Abnormal: Above high normal; Units: K/mm3; Status: F Test: LYMPH #; Value: 3.6; Range: 1.5-4.5; Units: K/mm3; Status: F Test: MONO #; Value: 0.6; Range: 0.0-0.8; Units: K/mm3; Status: F Test: EOS #; Value: 0.3; Range: 0.0-0.50; Units: K/mm3; Status: F Test: BASO #; Value: 0.1; Range: 0.0-0.2; Units: K/mm3; Status: F Test: LARGE UNSTAINED CELL #; Value: 0.3; Range: 0.0-0.4; Units: K/mm3; Status: F Lab Order: Cardiac Injury Profile; [facility] 08/01/16 20:13 Test: CPK CREATINE PHOSPHOKINASE; Value: 106; Range: 39-308; Units: U/L; Status: F Test: CK-MB VALUE MASS; Value: 1.0; Range: 0.0-3.6; Units: NG/ML; Status: F Test: MB/CK RELATIVE INDEX; Value: 0.94; Range: < OR =4; Status: F Test Note: ; DIAGNOSIS CRITERIA MMB ng/ml Relative Index (RI) NON-AMI < or = 5 N/A BENJAMIN ZONE > 5 < or = 4 AMI > 5 > 4 Lab Order: Troponin; 08/01/16 20:13 Test: TROPONIN I; Value: < 0.02; Range: < 0.10; Units: NG/ML; Status: F Test Note: ; Troponin I Reference Interval for CONSTRVCT LOCI: 99th Percentile= 0.00-0.045 ng/ml Risk Stratification: <= 0.10 ng/ml Decreased Risk for Adverse Clinical Events. 0.10-1.50 ng/ml Increased Risk for Adverse Clinical Events. Evaluation of additional criterion and/or repeat testing in 2-6 hours is suggested to rule out myocardial damage. >= 1.50 ng/ml Indicative of Myocardial Injury. Lab Order: LIPASE; SPEC 08/01/16 20:13 Test: LIPASE; Value: 180; Range: 73-393; Units: U/L; Status: F Lab Order: LIVER PROFILE; 01/11/17 20:13 Test: AST/SGOT; Value: 43; Range: 15-37; Abnormal: Above high normal; Units: U/L; Status: F Test: ALT/SGPT; Value: TNP; Range: 12-78; Units: U/L; Status: F Test: ALKALINE PHOSPHATASE; Value: 123; Range: 45-117; Abnormal: Above high normal; Units: U/L; Status: F Test: BILIRUBIN,TOTAL; Value: TNP; Range: 0.2-1.0; Units: MG/DL; Status: F Test: BILIRUBIN,DIRECT; Value: TNP; Range: 0.0-0.2; Units: MG/DL; Status: F Test: TOTAL PROTEIN; Value: 6.4; Range: 6.4-8.2; Units: GM/DL; Status: F Test: ALBUMIN; Value: 3.3; Range: 3.2-5.2; Units: GM/DL; Status: F Test: ALBUMIN/GLOBULIN RATIO; Value: 1.06; Range: 1.00-1.93; Status: F Test Note: ; Testing was performed on a lipemic specimen. Suggest recollection of a FASTING specimen for more accurate test results. UNABLE TO OBTAIN RESULTS DUE TO LIPEMIA Lab Order: ANI; SPEC'M 08/01/16 23:06 Test: GLUCOSE, FASTING; Value: 485; Range: 70-105; Abnormal: Above upper panic limits; Units: MG/DL; Status: F Test: BLOOD UREA NITROGEN; Value: 21; Range: 7-18; Abnormal: Above high normal; Units: MG/DL; Status: F Test: CREATININE FOR GFR; Value: 1.18; Range: 0.70-1.30; Units: MG/DL; Status: F Test: GLOMERULAR FILTRATION RATE; Value: > 60.0; Range: >60; Status: F Test: SODIUM LEVEL; Value: 129; Range: 136-145; Abnormal: Below low normal; Units: MEQ/L; Status: F Test: POTASSIUM SERUM; Value: 4.3; Range: 3.5-5.1; Units: MEQ/L; Status: F Test: CHLORIDE LEVEL; Value: 97; Range: 98-107; Abnormal: Below low normal; Units: MEQ/L; Status: F Test: CARBON DIOXIDE LEVEL; Value: 23; Range: 21-32; Units: MEQ/L; Status: F Test: ANION GAP; Value: 9; Range: 8-16; Units: MEQ/L; Status: F Test: CALCIUM LEVEL; Value: 7.6; Range: 8.5-10.1; Abnormal: Below low normal; Units: MG/DL; Status: F Test Note: ; Testing was performed on a lipemic specimen. Suggest recollection of a FASTING specimen for more accurate test results. 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; : 1975 Requested By: FUNMILAYO Roberts; Order Number: [id number] Reading MD: Christi Livingston; Measurements; Intervals Hugo; Rate: 89 P: 0; [place]: 128 QRS: 50; QRSD: 107 T: 34; QT: 351; QTc: 429; Interpretive Statements; SINUS RHYTHM; ?INFERIOR ND, ?AGE; NO PRIOR FOR COMPARISON; Electronically Signed On 08-03-2016 7:15:10 EST by Christi Livingston; Radiology Order: portable chest Test: portable chest REASON FOR EXAMINATION: Chest Pain; Clinical: Chest pain .; ; Comparison: 05/03/2015 .; ; Findings:; The mediastinum and cardiac silhouette are stable and within normal limits for; portable technique. The lung palmer are clear without acute consolidation,; effusion, or pneumothorax. Skeletal structures are intact.; ; Impression:; Normal portable chest x-ray; ; ; Signed by; Jeison Cisneros MD 08/02/2016 08:06 A; Radiology Order: US Gallbladder Test: US Gallbladder REASON FOR EXAMINATION: Biliary Colic; ; CLINICAL HISTORY: Biliary colic.; TECHNIQUE: Realtime sonographic images were obtained in multiple projections.; COMMENTS:; The liver is of normal size, parenchyma demonstrates increased echogenicity. No discrete hepatic mass; is seen.; There is no intra or extrahepatic biliary ductal dilatation. CBD measures 3.8 mm. The gallbladder is; partially contracted otherwise unremarkable. The gallbladder wall is not thickened and there is no pe; richolecystic fluid. There is no abdominal ascites.; The right kidney measures 13.1 cm and unremarkable.; IMPRESSION:; Echogenic liver noted which may be secondary to benign steatosis or chronic liver disease.; Thank you for your kind referral of this patient.; ; Outcome: 00:28 Decision to Hospitalize by Provider. fg 02:21 Discharge ordered by Provider. fg 02:40 Discharge Assessment: Patient awake, alert and oriented x 3. No cognitive and/or cf2 functional deficits noted. Patient verbalized understanding of disposition instructions. Patient awake and alert. Oriented to person, place and time. Patient verbalized understanding of disposition instructions. patient administered narcotics - yes. Pt provided with safe discharge. The following High Risk Discharge criteria are identified: None. Discharged to home. Condition: good Condition: stable Condition: improved. Discharge instructions given to patient, Instructed on discharge instructions, Demonstrated understanding of instructions, medications, Prescriptions given X 2. CT Study completed. Ultrasound Study completed. Property :Personal belongings accompany Pt. 02:42 Patient left the ED. cf2 Signatures: Dispatcher [employer] EDMS Taj Lawrence, RN Liv Best, Ed Reg Pat Harris Brianne br3 Alessandra Lal, PHOTO FINISHER PHOTO FINISHER Josee EspinozaRN Amarilis Ace RN RN cjh Boshart, Chelsea cmb Gill, Frances, MD MD Rajani Hardy RN RN cf2 Jaci Pennington RN jp6 Chart Complete MTDD
--- NOTE | 2016-08-04 03:43 | EDDOCDS ---
Physician Documentation [facility] Name: Grover Lee Age: 41 yrs Sex: Male : 1975 Arrival Date: 08/01/2016 Time: 20:04 Bed Admit Hold Private MD: Israel Eason M. Disposition: 08/02/16 02:21 Discharged to Home/Self Care. Impression: Chest pain, unspecified, Generalized abdominal pain, Hyperglycemia, unspecified. - Condition is Stable. - Discharge Instructions: Abdominal Pain, Adult, Nonspecific Chest Pain, Hyperglycemia, [id number]. - Prescriptions for omeprazole 40 mg Oral capsule,delayed release(DR/EC) - take 1 capsule by ORAL route once daily before a meal; 30 capsule. - Medication Reconciliation, Local Pharmacy Hours form. - Follow up: Israel Eason; When: Call to arrange an appointment; Reason: Continuance of care. - Problem is new. - Symptoms have improved. Historical: - Allergies: no known allergies; - Home Meds: 1. aspirin 325 mg Oral tab 1 tab once daily (Last dose: 07/31/2016) 2. gemfibrozil 600 mg Oral tab 1 tab 2 times per day (Last dose: 08/01/2016 09:00) 3. Humalog 100 unit/mL Sub-Q soln (Last dose: 07/31/2016) 4. metformin 1,000 mg oral tab 2 times per day (Last dose: 08/01/2016 09:00) 5. Niaspan Extended-Release 500 mg oral Tb24 1 tab once daily (Last dose: 07/31/2016) 6. fenofibrate oral 134 mg oral nightly (Last dose: 07/31/2016) 7. Fish Oil 1,000 mg Oral cap three times a day (Last dose: 08/01/2016 09:00) 8. ranitidine HCl 150 mg Oral tab 1 tab 2 times per day (Last dose: 08/01/2016 09:00) 9. Levomer 36 units twice daily (Last dose: 08/01/2016 09:00) - PMHx: Diabetes - IDDM: controlled; Hypercholesterolemia; Hypertension; Pancreatitis; - PSHx: Hernia repair- Umbilical; - Social history: Smoking status: Patient uses tobacco products, light tobacco smoker. No barriers to communication noted. - Family history: Not pertinent. - : The pt / caregiver states he / she is not on anticoagulants. Home medication list is obtained from the patient, family members. - Exposure Risk Screening:: None identified. Vital Signs: 08/01 20:06 BP 157 / 88; Pulse 94; Resp 16; Temp 98.8(O); Pulse Ox 95% ; Weight 97.52 kg / 214.99 cmb lbs; Height 5 ft. 5 in. (165.10 cm); Pain 7/10; 08/02 02:33 BP 151 / 75; Pulse 18; Resp 94; Temp 96.7(O); Pulse Ox 96% on R/A; Pain 0/10; leena 08/01 20:06 Body Mass Index 35.78 (97.52 kg, 165.10 cm) cmb MDM: 08/01 20:13 ECG WITH READING ER PHYS+CARDIAG ordered. EDMS 20:24 Aspirin Chewable Tablet 324 mg PO once ordered. fg 20:24 Rn Office/Pulse Ox/q 30 min VS ordered. fg 20:24 IV Saline Lock ordered. fg 20:24 Rhythm Strip to chart ordered. fg 20:24 Undress patient appropriately for examination ordered. fg 20:24 B-Type Natiuretic Peptide Ordered. EDMS 20:24 Basic Metabolic Profile Ordered. EDMS 20:24 CBC with Diff Ordered. EDMS 20:24 Cardiac Injury Profile Ordered. EDMS 20:24 Troponin Ordered. EDMS 20:24 portable chest Ordered. EDMS 21:13 US Gallbladder Ordered. EDMS 21:14 morphine 4 mg IVP once ordered. fg 21:14 Ondansetron 4 mg IVP once ordered. fg 21:21 Financial registration complete. zo 21:24 LIPASE Ordered. EDMS 21:24 LIVER PROFILE Ordered. EDMS 21:31 NS 0.9% 1000 ml IV at bolus once ordered. fg 21:31 Insulin Regular Human 10 units IVP once ordered. fg 22:15 [facility] was scanned into [employer] and attached to record. zo 22:22 BMP Ordered. EDMS 22:54 Fingerstick Blood Sugar Ordered. EDMS 08/02 00:16 oxyCODONE-acetaminophen 5 mg-325 mg 1 tabs PO once ordered. fg 00:27 Fingerstick Blood Sugar Ordered. EDMS 00:30 BED REQUEST+ADM ordered. EDMS 00:43 GI Cocktail - (Alum-Mag Hydroxide-Simeth 30 ml, Lidocaine 10 ml, Hyoscyamine 10 ml) PO fg once; Pre-mixed 50mL unit dose ordered. 02:02 oxyCODONE-acetaminophen 5 mg-325 mg 1 tabs PO once ordered. fg 02:19 oxyCODONE-acetaminophen 4 pack 5 mg-325 mg 1 packets PO once; Dispense with pt, take as fg per instruction on package ordered. 09:03 T-Sheet-- Draft Copy was scanned into [employer] and attached to record. gb 09:03 ECG/EKG was scanned into [employer] and attached to record. gb 09:03 Radiology Report was scanned into [employer] and attached to record. gb Administered Medications: 08/01 20:40 Drug: Aspirin 324 mg [aspirin 81 mg chewable tablet (4 tabs)] Route: PO; cf2 21:24 Drug: morphine 4 mg [morphine 4 mg/mL intravenous cartridge (1 mL)] Route: IVP; Site: cf2 left antecubital; 08/02 02:40 Follow up: Response: No significant change. cf2 08/01 21:24 Drug: Ondansetron 4 mg Route: IVP; Site: left antecubital; cf2 08/02 02:08 Follow up: Response: Pain is decreased cf2 08/01 21:39 Drug: NS 0.9% 1000 ml [sodium chloride 0.9 % intravenous solution] Route: IV; Rate: cf2 bolus; Site: left antecubital; 21:40 Drug: Insulin Regular Human 10 units [insulin regular human 100 unit/mL injection cf2 solution (0.1 mL)] {Co-Signature: jp6 (Jaci Pennington RN).} Route: IVP; Site: left antecubital; 08/02 02:08 Follow up: Response: No significant change. cf2 00:20 Drug: oxyCODONE-acetaminophen 1 tabs [oxycodone-acetaminophen 5 mg-325 mg tablet (1 cf2 tabs)] Route: PO; 02:08 Follow up: Response: Pain is decreased cf2 01:05 Drug: GI Cocktail - (Alum-Mag Hydroxide-Simeth Suspension 225 mg-200 mg-25 mg/5 mL 30 cf2 ml, Lidocaine Liquid 2 % 10 ml, Hyoscyamine Liquid 10 ml) Route: PO; 02:07 Follow up: Response: No significant change. cf2 02:07 Drug: oxyCODONE-acetaminophen 1 tabs [oxycodone-acetaminophen 5 mg-325 mg tablet (1 cf2 tabs)] Route: PO; 02:40 Follow up: Response: No significant change. cf2 02:33 Drug: oxyCODONE-acetaminophen 4 pack 1 packets [oxycodone-acetaminophen 5 mg-325 mg cf2 tablet (1 tabs)] {Co-Signature: jp6 (Jaci Pennington RN).} Route: PO; 02:40 Follow up: Response: No Adverse Reaction cf2 Signatures: Dispatcher [employer] EDMS Liv You, Reg Reg Pat Harris Jane,RN RN [facility] Funmilayo Chavarria MD MD Rajani Hardy,RN RN cf2 Jaci Pennington RN jp6 The chart was reviewed and I authenticate all verbal orders and agree with the evaluation and treatment provided.Corrections: (The following items were deleted from the chart) 08/01 21:02 20:24 Chest, 2 view (PA\E\Lat)+XR ordered. EDMS EDMS 21:24 21:13 LIPASE+LAB ordered. EDMS EDMS 21:24 21:13 LIVER PROFILE+LAB ordered. EDMS EDMS Attachments: 22:15 [facility] Payment Agreement zo 08/02 09:03 T-Sheet-- Draft Copy gb 09:03 ECG/EKG gb Chart Complete MTDD
--- NOTE | 2016-08-04 03:43 | EDDOCDS ---
Physician Documentation [facility] Name: Grover Lee Age: 41 yrs Sex: Male : 1975 Arrival Date: 08/01/2016 Time: 20:04 Bed Admit Hold Private MD: Israel Eason M. Disposition: 08/02/16 02:21 Discharged to Home/Self Care. Impression: Chest pain, unspecified, Generalized abdominal pain, Hyperglycemia, unspecified. - Condition is Stable. - Discharge Instructions: Abdominal Pain, Adult, Nonspecific Chest Pain, Hyperglycemia, [id number]. - Prescriptions for omeprazole 40 mg Oral capsule,delayed release(DR/EC) - take 1 capsule by ORAL route once daily before a meal; 30 capsule. - Medication Reconciliation, Local Pharmacy Hours form. - Follow up: Israel Eason; When: Call to arrange an appointment; Reason: Continuance of care. - Problem is new. - Symptoms have improved. Historical: - Allergies: no known allergies; - Home Meds: 1. aspirin 325 mg Oral tab 1 tab once daily (Last dose: 07/31/2016) 2. gemfibrozil 600 mg Oral tab 1 tab 2 times per day (Last dose: 08/01/2016 09:00) 3. Humalog 100 unit/mL Sub-Q soln (Last dose: 07/31/2016) 4. metformin 1,000 mg oral tab 2 times per day (Last dose: 08/01/2016 09:00) 5. Niaspan Extended-Release 500 mg oral Tb24 1 tab once daily (Last dose: 07/31/2016) 6. fenofibrate oral 134 mg oral nightly (Last dose: 07/31/2016) 7. Fish Oil 1,000 mg Oral cap three times a day (Last dose: 08/01/2016 09:00) 8. ranitidine HCl 150 mg Oral tab 1 tab 2 times per day (Last dose: 08/01/2016 09:00) 9. Levomer 36 units twice daily (Last dose: 08/01/2016 09:00) - PMHx: Diabetes - IDDM: controlled; Hypercholesterolemia; Hypertension; Pancreatitis; - PSHx: Hernia repair- Umbilical; - Social history: Smoking status: Patient uses tobacco products, light tobacco smoker. No barriers to communication noted. - Family history: Not pertinent. - : The pt / caregiver states he / she is not on anticoagulants. Home medication list is obtained from the patient, family members. - Exposure Risk Screening:: None identified. Vital Signs: 08/01 20:06 BP 157 / 88; Pulse 94; Resp 16; Temp 98.8(O); Pulse Ox 95% ; Weight 97.52 kg / 214.99 cmb lbs; Height 5 ft. 5 in. (165.10 cm); Pain 7/10; 08/02 02:33 BP 151 / 75; Pulse 18; Resp 94; Temp 96.7(O); Pulse Ox 96% on R/A; Pain 0/10; leena 08/01 20:06 Body Mass Index 35.78 (97.52 kg, 165.10 cm) cmb MDM: 08/01 20:13 ECG WITH READING ER PHYS+CARDIAG ordered. EDMS 20:24 Aspirin Chewable Tablet 324 mg PO once ordered. fg 20:24 Administrative Technician/Pulse Ox/q 30 min VS ordered. fg 20:24 IV Saline Lock ordered. fg 20:24 Rhythm Strip to chart ordered. fg 20:24 Undress patient appropriately for examination ordered. fg 20:24 B-Type Natiuretic Peptide Ordered. EDMS 20:24 Basic Metabolic Profile Ordered. EDMS 20:24 CBC with Diff Ordered. EDMS 20:24 Cardiac Injury Profile Ordered. EDMS 20:24 Troponin Ordered. EDMS 20:24 portable chest Ordered. EDMS 21:13 US Gallbladder Ordered. EDMS 21:14 morphine 4 mg IVP once ordered. fg 21:14 Ondansetron 4 mg IVP once ordered. fg 21:21 Financial registration complete. zo 21:24 LIPASE Ordered. EDMS 21:24 LIVER PROFILE Ordered. EDMS 21:31 NS 0.9% 1000 ml IV at bolus once ordered. fg 21:31 Insulin Regular Human 10 units IVP once ordered. fg 22:15 [facility] [place] Agreement was scanned into [employer] and attached to record. zo 22:22 BMP Ordered. EDMS 22:54 Fingerstick Blood Sugar Ordered. EDMS 08/02 00:16 oxyCODONE-acetaminophen 5 mg-325 mg 1 tabs PO once ordered. fg 00:27 Fingerstick Blood Sugar Ordered. EDMS 00:30 BED REQUEST+ADM ordered. EDMS 00:43 GI Cocktail - (Alum-Mag Hydroxide-Simeth 30 ml, Lidocaine 10 ml, Hyoscyamine 10 ml) PO fg once; Pre-mixed 50mL unit dose ordered. 02:02 oxyCODONE-acetaminophen 5 mg-325 mg 1 tabs PO once ordered. fg 02:19 oxyCODONE-acetaminophen 4 pack 5 mg-325 mg 1 packets PO once; Dispense with pt, take as fg per instruction on package ordered. 09:03 T-Sheet-- Draft Copy was scanned into [employer] and attached to record. gb 09:03 ECG/EKG was scanned into [employer] and attached to record. gb 09:03 Radiology Report was scanned into [employer] and attached to record. gb Administered Medications: 08/01 20:40 Drug: Aspirin 324 mg [aspirin 81 mg chewable tablet (4 tabs)] Route: PO; cf2 21:24 Drug: morphine 4 mg [morphine 4 mg/mL intravenous cartridge (1 mL)] Route: IVP; Site: cf2 left antecubital; 08/02 02:40 Follow up: Response: No significant change. cf2 08/01 21:24 Drug: Ondansetron 4 mg Route: IVP; Site: left antecubital; cf2 08/02 02:08 Follow up: Response: Pain is decreased cf2 08/01 21:39 Drug: NS 0.9% 1000 ml [sodium chloride 0.9 % intravenous solution] Route: IV; Rate: cf2 bolus; Site: left antecubital; 21:40 Drug: Insulin Regular Human 10 units [insulin regular human 100 unit/mL injection cf2 solution (0.1 mL)] {Co-Signature: jp6 (Jaci Pennington RN).} Route: IVP; Site: left antecubital; 08/02 02:08 Follow up: Response: No significant change. cf2 00:20 Drug: oxyCODONE-acetaminophen 1 tabs [oxycodone-acetaminophen 5 mg-325 mg tablet (1 cf2 tabs)] Route: PO; 02:08 Follow up: Response: Pain is decreased cf2 01:05 Drug: GI Cocktail - (Alum-Mag Hydroxide-Simeth Suspension 225 mg-200 mg-25 mg/5 mL 30 cf2 ml, Lidocaine Liquid 2 % 10 ml, Hyoscyamine Liquid 10 ml) Route: PO; 02:07 Follow up: Response: No significant change. cf2 02:07 Drug: oxyCODONE-acetaminophen 1 tabs [oxycodone-acetaminophen 5 mg-325 mg tablet (1 cf2 tabs)] Route: PO; 02:40 Follow up: Response: No significant change. cf2 02:33 Drug: oxyCODONE-acetaminophen 4 pack 1 packets [oxycodone-acetaminophen 5 mg-325 mg cf2 tablet (1 tabs)] {Co-Signature: jp6 (Jaci Pennington RN).} Route: PO; 02:40 Follow up: Response: No Adverse Reaction cf2 Signatures: Dispatcher [employer] EDMS Liv You, Reg Reg Pat Harris Jane,RN RN [facility] Funmilayo Chavarria MD MD Rajani Hardy,RN RN cf2 Jaci Pennington RN jp6 The chart was reviewed and I authenticate all verbal orders and agree with the evaluation and treatment provided.Corrections: (The following items were deleted from the chart) 08/01 21:02 20:24 Chest, 2 view (PA\E\Lat)+XR ordered. EDMS EDMS 21:24 21:13 LIPASE+LAB ordered. EDMS EDMS 21:24 21:13 LIVER PROFILE+LAB ordered. EDMS EDMS Attachments: 22:15 [facility] Payment Agreement zo 08/02 09:03 T-Sheet-- Draft Copy gb 09:03 ECG/EKG gb Chart Complete MTDD
== END 2016-08-02 02:42 | disposition home or self-care (01) ==
LOC: M ED 20:04
DX: R07.9 Chest pain, unspecified (principal); R10.9 Unspecified abdominal pain; E11.65 Type 2 diabetes mellitus with hyperglycemia; E78.00 Pure hypercholesterolemia, unspecified; I10 Essential (primary) hypertension; Z72.0 Tobacco use; Z79.82 Long term (current) use of aspirin; Z79.899 Other long term (current) drug therapy; Z79.4 Long term (current) use of insulin; Z79.84 Long term (current) use of oral hypoglycemic drugs

== ENCOUNTER → 2017-07-02 | Outpatient (REF) | payer OTHER ==
[~2017-07-02] MED LIST changes: +FENO134C PO; +FISH1000 PO; +INSUDET SC; +METF10004 PO; -METF500T PO; +METF500T13 PO; +NIAC1TAB PO; +RANI150T PO; -TRIC145T PO; +TRIC145T22 PO
[2017-07-02 13:56] LABS: ALBUMIN/GLOBULIN RATIO 1.29 (1.00-1.93); ALKALINE PHOSPHATASE 75 U/L (45-117); ALT/SGPT 38 U/L (12-78); ANION GAP 8 MEQ/L (8-16); AST/SGOT 13 U/L (7-37); BILIRUBIN,TOTAL 0.2 MG/DL (0.2-1.0); BLOOD UREA NITROGEN 11 MG/DL (7-18); CARBON DIOXIDE LEVEL 29 MEQ/L (21-32); CHLORIDE LEVEL 102 MEQ/L (98-107); CREATININE FOR GFR 0.88 MG/DL (0.70-1.30); GLOMERULAR FILTRATION RATE > 60.0 (>60); GLUCOSE, FASTING 197 MG/DL (70-105); POTASSIUM SERUM 4.9 MEQ/L (3.5-5.1); SODIUM LEVEL 139 MEQ/L (136-145); TOTAL PROTEIN 7.1 GM/DL (6.4-8.2)
== END ==
LOC: M LAB REF 13:01
PROVIDERS: ATTEND Surgery
DX: Z51.81 Encounter for therapeutic drug level monitoring (principal); Z79.899 Other long term (current) drug therapy

== ENCOUNTER → 2017-07-09 | Outpatient (REF) | payer OTHER | LOC: M LAB REF 08:25 | PROVIDERS: ATTEND Surgery | DX: Z51.81 Encounter for therapeutic drug level monitoring (principal) ==

== ENCOUNTER 2021-06-26 18:23 | Emergency (ER) | payer MEDICAID, OTHER ==
[~2021-06-26] VITALS: Ht 170.2 cm; Wt 78.6 kg
[~2021-06-26 18:23] MED LIST changes: -/FENO14TA PO; +ASPI-1 PO; -ASPI325T PO; -BLOOKIT20 XX; +BLOOKIT21 XX; -GEMF600T PO; +GEMF600T5 PO; -NIAC1TAB PO; +NIAC500T64 PO; -NIAS1TAB PO; +NIAS500T23 PO; +TRIC145T19 PO
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
[2021-06-26 21:33] LABS: BASO # 0.1 10^3/uL (0.0-0.2); BASO % 0.5 % (0.0-1.0); EOS # 0.1 10^3/uL (0.0-0.5); EOS % 0.9 % (0.0-3.0); HEMATOCRIT 44.7 % (42.0-52.0); HEMOGLOBIN 16.2 g/dl (13.5-17.5); LYMPH % 34.2 % (24.0-44.0); MEAN CORPUSCULAR HEMOGLOBIN 32.7 pg (27.0-33.0); MEAN CORPUSCULAR HGB CONC 36.2 g/dl (32.0-36.5); MEAN CORPUSCULAR VOLUME 90.1 fl (80.0-96.0); MONO # 0.8 10^3/uL (0.0-0.8); MONO % 6.8 % (2.0-8.0); NEUTROPHILS # 6.7 10^3/uL (1.5-8.5); NEUTROPHILS % 57.4 % (36.0-66.0); PLATELET COUNT, AUTOMATED 384 10^3/uL (150-450); RED BLOOD COUNT 4.96 10^6/uL (4.30-6.10); WHITE BLOOD COUNT 11.7 10^3/uL (4.0-10.0)
[2021-06-27] MEDS ORDERED: NS 1,000 ML IV ONE (00:55)
[2021-06-27 02:36] LABS: VENOUS BASE EXCESS -0.7 (-2.0-2.0); VENOUS HCO3 25.3 MEQ/L (23.0-27.0); VENOUS O2 SATURATION 60.2 % (60.0-80.0); VENOUS PARTIAL PRESSURE CO2 46.8 mmHg (38.0-50.0); VENOUS PARTIAL PRESSURE O2 30.1 mmHg (30.0-50.0); VENOUS PH 7.351 UNITS (7.330-7.430); VENOUS TOTAL CO2 26.8 MEQ/L (24.0-28.0)
[2021-06-27 03:01] LABS: OSMOLALITY SERUM 303 MOSM/KG (275-295)
[2021-06-27 03:53] LABS: HEMOGLOBIN A1c > 14.0 %
[2021-06-27 04:10] LABS: ACETONE/KETONE 19.69 MG/DL (<2.81); ALBUMIN 2.5 GM/DL (3.2-5.2); BILIRUBIN,DIRECT < 0.1 MG/DL (0.0-0.2); BILIRUBIN,TOTAL 0.7 MG/DL (0.2-1.0); BLOOD UREA NITROGEN 10 MG/DL (7-18); CARBON DIOXIDE LEVEL 28 MEQ/L (21-32); CHLORIDE LEVEL 97 MEQ/L (98-107); CREATININE FOR GFR 0.76 MG/DL (0.70-1.30); GLOMERULAR FILTRATION RATE > 60.0 (>60); GLUCOSE, FASTING 406 MG/DL (70-100); LIPASE 93 U/L (73-393); MAGNESIUM LEVEL 2.1 MG/DL (1.8-2.4); POTASSIUM SERUM 4.8 MEQ/L (3.5-5.1); SODIUM LEVEL 134 MEQ/L (136-145)
[2021-06-27] MEDS ORDERED: HumuLIN R (REGULAR) INSULIN (NovoLIN R) **100U/ML** PER UNIT IV ONE (04:40)
[2021-06-27] MEDS ORDERED: INSUDET SC (04:51)
[2021-06-27] MEDS ORDERED: METF10004 PO (04:51)
[2021-06-27] MEDS ORDERED: BLOOKIT21 XX (04:51)
[2021-06-27] MEDS ORDERED: BD P32MI SC (04:51)
[2021-06-27] MEDS ORDERED: FREEMIS42 TOP (04:51)
[2021-06-27] MEDS ORDERED: COMF1MIS25 SC (04:51)
[2021-06-27] MEDS ORDERED: GLUC1TES2 XX (04:51)
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
[2021-06-27 06:51] VITALS: BP 127/72
--- NOTE | 2021-06-28 13:24 | ECGEPIP ---
[facility] - ED Test Date: 2021-06-27 Pat Name: CLARITZA ELLIOTT Department: Room: - Gender: Male Anchorer: Nany COPE : 1975 Requested By: ANDREZ Ayon Order Number: [id number] Reading MD: Irvin Ricci Measurements Intervals [place] Rate: 75 P: -21 NH: 150 QRS: 56 QRSD: 100 T: 41 QT: 386 QTc: 431 Interpretive Statements Normal sinus rhythm Nonspecific ST-T wave abnormalities Electronically Signed on 06-28-2021 13:23:56 EST by Irvin Ricci
== END 2021-06-27 06:56 | disposition home or self-care (01) ==
LOC: M ED 18:23
DX: E11.65 Type 2 diabetes mellitus with hyperglycemia (principal); I10 Essential (primary) hypertension; Z79.899 Other long term (current) drug therapy; Z79.82 Long term (current) use of aspirin; Z79.4 Long term (current) use of insulin; F17.210 Nicotine dependence, cigarettes, uncomplicated

== ENCOUNTER 2022-06-27 01:43 | Inpatient (IN) | payer MEDICAID, OTHER ==
[~2022-06-27] VITALS: Ht 170.2 cm; Wt 75.8 kg
[~2022-06-27 01:43] MED LIST changes: +BD P32MI SC; +COMF1MIS25 SC; -FENO134C PO; +FENO134C20 PO; +FREEMIS42 TOP; +GLUC1TES2 XX
[2022-06-27] MEDS ORDERED: ADME100I2 SC (02:06)
[2022-06-27 02:30] LABS: HEMATOCRIT 52.6 % (42.0-52.0); HEMOGLOBIN 17.2 g/dl (13.5-17.5); MEAN CORPUSCULAR HEMOGLOBIN 29.1 pg (27.0-33.0); MEAN CORPUSCULAR HGB CONC 32.7 g/dl (32.0-36.5); MEAN CORPUSCULAR VOLUME 88.9 fl (80.0-96.0); PLATELET COUNT, AUTOMATED 382 10^3/uL (150-450); RED BLOOD COUNT 5.92 10^6/uL (4.30-6.10); WHITE BLOOD COUNT 19.1 10^3/uL (4.0-10.0)
[2022-06-27 02:53] LABS: ACETAMINOPHEN LEVEL < 2.0 UG/ML (10.0-20.0); ALBUMIN 4.1 G/DL (3.2-5.2); ALKALINE PHOSPHATASE 133 U/L (46-116); ALT/SGPT 29 U/L (7.0-40); AST/SGOT 17 U/L (<34); BILIRUBIN,DIRECT < 0.1 MG/DL (<0.4); BILIRUBIN,TOTAL 0.3 MG/DL (0.3-1.2); BLOOD UREA NITROGEN 11 MG/DL (9-23); CALCIUM LEVEL 9.9 MG/DL (8.5-10.1); CARBON DIOXIDE LEVEL 19 MMOL/L (20-31); CHLORIDE LEVEL 99 MMOL/L (98-107); CREATININE FOR GFR 0.59 MG/DL (0.70-1.30); GLOMERULAR FILTRATION RATE > 60.0 (>60); GLUCOSE, FASTING 391 MG/DL (60-100); POTASSIUM SERUM 4.7 MMOL/L (3.5-5.1); SALICYLATE LEVEL < 3.0 MG/DL (<30); SODIUM LEVEL 135 MMOL/L (136-145); TOTAL PROTEIN 7.8 G/DL (5.7-8.2)
[2022-06-27 02:56] LABS: THYROID STIMULATING HORMONE 1.412 uIU/ML (0.55-4.78)
[2022-06-27 03:09] LABS: RSV AMPLIFICATION NEGATIVE (NEGATIVE)
[2022-06-27 06:08] LABS: AMPHETAMINES LEVEL URINE NEGATIVE (NEGATIVE); BARBITURATES URINE NEGATIVE (NEGATIVE); BENZODIAZEPINES URINE NEGATIVE (NEGATIVE); COCAINE METABOLITE URINE NEGATIVE (NEGATIVE); METHADONE URINE NEGATIVE (NEGATIVE); OPIATES URINE NEGATIVE (NEGATIVE); PHENCYCLIDINE URINE NEGATIVE (NEGATIVE)
[2022-06-27 06:09] LABS: CANNABINOIDS URINE NEGATIVE (NEGATIVE)
[2022-06-27] MEDS ORDERED: ACETAMINOPHEN 325 MG TAB PO ONE (07:40)
[2022-06-27] MEDS ORDERED: HumuLIN R (REGULAR) INSULIN (NovoLIN R) **100U/ML** PER UNIT IV ONE (10:00)
[2022-06-27] MEDS ORDERED: NS 1,000 ML IV ONE ×2 (10:00→11:00)
[2022-06-27] MEDS ORDERED: ATOR1TAB19 PO (10:06)
[2022-06-27] MEDS ORDERED: METF-877 PO (10:06)
[2022-06-27] MEDS ORDERED: LEVE1INJ5 SC (10:06)
[2022-06-27] MEDS ORDERED: HOME MED LIST COMPLETE! XX SCH (10:10)
[2022-06-27 10:13] LABS: VENOUS BASE EXCESS 1.9 (-2.0-2.0); VENOUS O2 SATURATION 97.5 % (60.0-80.0); VENOUS PARTIAL PRESSURE CO2 43.9 mmHg (38.0-50.0); VENOUS PARTIAL PRESSURE O2 102.7 mmHg (30.0-50.0); VENOUS PH 7.407 UNITS (7.330-7.430); VENOUS STANDARD HCO3 26.1 MEQ/L; VENOUS TOTAL CO2 28.4 MEQ/L (24.0-28.0)
[2022-06-27 10:58] LABS: BLOOD UREA NITROGEN 14 MG/DL (9-23); CARBON DIOXIDE LEVEL 26 MMOL/L (20-31); CHLORIDE LEVEL 97 MMOL/L (98-107); CREATININE FOR GFR 0.48 MG/DL (0.70-1.30); GLOMERULAR FILTRATION RATE > 60.0 (>60); GLUCOSE, FASTING 449 MG/DL (60-100); POTASSIUM SERUM 4.5 MMOL/L (3.5-5.1); SODIUM LEVEL 131 MMOL/L (136-145)
[2022-06-27] MEDS ORDERED: metFORMIN (GLUCOPHAGE) 1000MG TABLET PO ONE (11:10)
[2022-06-27 11:14] LABS: BASO # 0.1 10^3/uL (0.0-0.2); BASO % 0.5 % (0.0-1.0); EOS # 0.1 10^3/uL (0.0-0.5); EOS % 0.7 % (0.0-3.0); HEMATOCRIT 48.1 % (42.0-52.0); HEMOGLOBIN 15.8 g/dl (13.5-17.5); LYMPH # 3.8 10^3/uL (1.5-5.0); LYMPH % 25.6 % (24.0-44.0); MEAN CORPUSCULAR HEMOGLOBIN 29.1 pg (27.0-33.0); MEAN CORPUSCULAR HGB CONC 32.8 g/dl (32.0-36.5); MEAN CORPUSCULAR VOLUME 88.6 fl (80.0-96.0); MONO # 1.2 10^3/uL (0.0-0.8); MONO % 7.9 % (2.0-8.0); NEUTROPHILS # 9.7 10^3/uL (1.5-8.5); PLATELET COUNT, AUTOMATED 314 10^3/uL (150-450); RED BLOOD COUNT 5.43 10^6/uL (4.30-6.10)
[2022-06-27] MEDS ORDERED: LEVEMIR (INSULIN DETEMIR) 1 UNITS/0.01ML SC ONE (12:35)
[2022-06-27] MEDS ORDERED: LORazepam 2 MG TAB PO PRN ×2 (12:50→14:45)
[2022-06-27] MEDS ORDERED: MOM 30ML SUSPENSION UDC PO PRN (14:45)
[2022-06-27] MEDS ORDERED: ACETAMINOPHEN TAB 650MG DOSE (2X325MG) PO PRN (14:45)
[2022-06-27] MEDS ORDERED: MAALOX 30 ML SUSP *UDC PO PRN (14:45)
[2022-06-27] MEDS ORDERED: INSULIN LISPRO (NovoLOG) PER UNIT SC SCH (17:30)
[2022-06-27 18:06] VITALS: BP 113/70
[2022-06-27] MEDS ORDERED: DEXTROSE 50% 50 ML SYRINGE IV PRN (18:35)
[2022-06-27] MEDS ORDERED: GLUCAGON INJ 1MG VIAL SC PRN (18:35)
[2022-06-27] MEDS ORDERED: GLUCOSE 4GM CHEW TABLET PO PRN (18:35)
[2022-06-27 18:39] VITALS: BP 113/70
[2022-06-27] MEDS ORDERED: metFORMIN (GLUCOPHAGE) 1000MG TABLET PO SCH (21:00)
[2022-06-27] MEDS ORDERED: THIAMINE 100 MG TAB PO SCH (21:00)
[2022-06-27] MEDS: INSULIN LISPRO (NovoLOG) PER UNIT SC SCH (21:29)
[2022-06-27] MEDS: traZODone 50 MG TAB PO PRN (21:29)
[2022-06-27] MEDS: THIAMINE 100 MG TAB PO SCH (21:30)
[2022-06-28 04:15] VITALS: BP 133/80
[2022-06-28] MEDS: INSULIN LISPRO (NovoLOG) PER UNIT SC SCH ×4 (05:42→20:21)
[2022-06-28 06:21] VITALS: BP 133/80
[2022-06-28] MEDS ORDERED: LEVEMIR (INSULIN DETEMIR) 1 UNITS/0.01ML SC SCH ×2 (09:00)
[2022-06-28] MEDS ORDERED: MULTIVITAMINS/MINERALS THERAP 1 TAB PO SCH (09:00)
[2022-06-28] MEDS ORDERED: FOLIC ACID 1MG TAB PO SCH (09:00)
[2022-06-28] MEDS ORDERED: INFLUENZA QUADRIVALENT PF VACCINE 0.5ML SYRINGE IM.IMMUN ONE (09:00)
[2022-06-28] MEDS: FOLIC ACID 1MG TAB PO SCH (09:35)
[2022-06-28] MEDS: THIAMINE 100 MG TAB PO SCH ×2 (09:35→20:20)
[2022-06-28] MEDS: MULTIVITAMINS/MINERALS THERAP 1 TAB PO SCH (09:35)
[2022-06-28] MEDS: LEVEMIR (INSULIN DETEMIR) 1 UNITS/0.01ML SC SCH (09:36)
[2022-06-28 09:59] LABS: BASO # 0.1 10^3/uL (0.0-0.2); BASO % 0.6 % (0.0-1.0); EOS # 0.2 10^3/uL (0.0-0.5); EOS % 1.4 % (0.0-3.0); HEMATOCRIT 44.6 % (42.0-52.0); HEMOGLOBIN 14.6 g/dl (13.5-17.5); LYMPH # 3.4 10^3/uL (1.5-5.0); LYMPH % 30.1 % (24.0-44.0); MEAN CORPUSCULAR HEMOGLOBIN 29.4 pg (27.0-33.0); MEAN CORPUSCULAR HGB CONC 32.7 g/dl (32.0-36.5); MEAN CORPUSCULAR VOLUME 89.9 fl (80.0-96.0); MONO % 8.7 % (2.0-8.0); NEUTROPHILS # 6.6 10^3/uL (1.5-8.5); NEUTROPHILS % 58.9 % (36.0-66.0); PLATELET COUNT, AUTOMATED 287 10^3/uL (150-450); RED BLOOD COUNT 4.96 10^6/uL (4.30-6.10); WHITE BLOOD COUNT 11.2 10^3/uL (4.0-10.0)
[2022-06-28 12:30] VITALS: BP 134/68
[2022-06-28 19:02] VITALS: BP 132/67
[2022-06-28] MEDS: traZODone 50 MG TAB PO PRN (20:20)
[2022-06-28] MEDS ORDERED: SERTRALINE HCL 25 MG TABLET PO SCH (21:00)
[2022-06-29 06:00] VITALS: BP 141/91
[2022-06-29] MEDS: INSULIN LISPRO (NovoLOG) PER UNIT SC SCH ×4 (06:08→20:50)
[2022-06-29] MEDS: LEVEMIR (INSULIN DETEMIR) 1 UNITS/0.01ML SC SCH (08:52)
[2022-06-29] MEDS: MULTIVITAMINS/MINERALS THERAP 1 TAB PO SCH (08:52)
[2022-06-29] MEDS: FOLIC ACID 1MG TAB PO SCH (08:53)
[2022-06-29] MEDS: THIAMINE 100 MG TAB PO SCH ×2 (08:53→20:49)
[2022-06-29 14:37] VITALS: BP 141/69
[2022-06-29 16:21] VITALS: BP 145/72
[2022-06-29] MEDS: traZODone 50 MG TAB PO PRN (20:50)
[2022-06-29] MEDS ORDERED: SERTRALINE HCL 50 MG TAB PO SCH (21:00)
[2022-06-29 22:30] VITALS: BP 145/72
[2022-06-30 06:20] VITALS: BP 107/56
[2022-06-30] MEDS: INSULIN LISPRO (NovoLOG) PER UNIT SC SCH ×4 (06:47→20:14)
[2022-06-30] MEDS: FOLIC ACID 1MG TAB PO SCH (08:54)
[2022-06-30] MEDS: MULTIVITAMINS/MINERALS THERAP 1 TAB PO SCH (08:54)
[2022-06-30] MEDS: THIAMINE 100 MG TAB PO SCH (08:54)
[2022-06-30] MEDS: LEVEMIR (INSULIN DETEMIR) 1 UNITS/0.01ML SC SCH (08:54)
[2022-06-30] MEDS: hydrOXYzine 50 MG TAB PO PRN (14:59)
[2022-06-30 16:20] VITALS: BP 141/66
[2022-06-30] MEDS: SERTRALINE 100 MG TAB PO SCH (20:14)
[2022-06-30] MEDS: traZODone 50 MG TAB PO PRN (20:15)
[2022-07-01 06:19] VITALS: BP 112/60
[2022-07-01] MEDS: INSULIN LISPRO (NovoLOG) PER UNIT SC SCH ×4 (06:48→20:09)
[2022-07-01] MEDS: MULTIVITAMINS/MINERALS THERAP 1 TAB PO SCH (09:15)
[2022-07-01] MEDS: FOLIC ACID 1MG TAB PO SCH (09:15)
[2022-07-01] MEDS: LEVEMIR (INSULIN DETEMIR) 1 UNITS/0.01ML SC SCH (09:15)
[2022-07-01 16:25] VITALS: BP 126/68
[2022-07-01] MEDS: traZODone 50 MG TAB PO PRN (20:06)
[2022-07-01] MEDS: hydrOXYzine 50 MG TAB PO PRN (20:06)
[2022-07-01] MEDS: SERTRALINE 100 MG TAB PO SCH (20:06)
[2022-07-02 06:41] VITALS: BP 123/64
[2022-07-02] MEDS: INSULIN LISPRO (NovoLOG) PER UNIT SC SCH ×2 (07:00→12:04)
[2022-07-02] MEDS: MULTIVITAMINS/MINERALS THERAP 1 TAB PO SCH (09:19)
[2022-07-02] MEDS: LEVEMIR (INSULIN DETEMIR) 1 UNITS/0.01ML SC SCH (09:19)
[2022-07-02] MEDS: FOLIC ACID 1MG TAB PO SCH (09:19)
[2022-07-02] MEDS ORDERED: ZOLO100T PO (09:46)
[2022-07-02] MEDS ORDERED: HYDR50TA70 PO (09:46)
[2022-07-02] MEDS ORDERED: TRAZ-252 PO (09:46)
[2022-07-02] MEDS: hydrOXYzine 50 MG TAB PO PRN (12:07)
== END 2022-07-02 13:21 | disposition home or self-care (01) | DRG 754 ==
LOC: M ED 01:43 → M ED INP 14:41 → M PSY 17:23
PROVIDERS: ADMIT Student in an Organized Health Care Education/Training Program; ATTEND Student in an Organized Health Care Education/Training Program
DX: F32.A Depression, unspecified (principal); E11.65 Type 2 diabetes mellitus with hyperglycemia; R45.851 Suicidal ideations; F43.10 Post-traumatic stress disorder, unspecified; F63.81 Intermittent explosive disorder; F60.2 Antisocial personality disorder; F17.200 Nicotine dependence, unspecified, uncomplicated; F10.14 Alcohol abuse with alcohol-induced mood disorder; Z63.0 Problems in relationship with spouse or partner; Z91.52 Personal history of nonsuicidal self-harm; Z56.0 Unemployment, unspecified; Z79.4 Long term (current) use of insulin; Z79.899 Other long term (current) drug therapy; Z65.3 Problems related to other legal circumstances

== ENCOUNTER 2022-07-12 19:39 | Inpatient (IN) | payer OTHER ==
[~2022-07-12 19:39] MED LIST changes: +ADME100I2 SC; +ATOR1TAB19 PO; +HYDR50TA70 PO; +LEVE1INJ5 SC; +METF-877 PO; +TRAZ-252 PO; +ZOLO100T PO
[2022-07-12 20:05] LABS: HEMATOCRIT 47.8 % (42.0-52.0); HEMOGLOBIN 15.6 g/dl (13.5-17.5); MEAN CORPUSCULAR HEMOGLOBIN 29.3 pg (27.0-33.0); MEAN CORPUSCULAR HGB CONC 32.6 g/dl (32.0-36.5); MEAN CORPUSCULAR VOLUME 89.7 fl (80.0-96.0); PLATELET COUNT, AUTOMATED 307 10^3/uL (150-450); RED BLOOD COUNT 5.33 10^6/uL (4.30-6.10)
[2022-07-12 20:34] LABS: ETHYL ALCOHOL (ETHANOL) 0.004 % (0.000-0.010)
[2022-07-12 20:36] LABS: BILIRUBIN,DIRECT < 0.1 MG/DL (<0.4); SALICYLATE LEVEL < 3.0 MG/DL (<30)
[2022-07-12 20:37] LABS: ACETAMINOPHEN LEVEL < 2.0 UG/ML (10.0-20.0); ALBUMIN 3.8 G/DL (3.2-5.2); ALKALINE PHOSPHATASE 125 U/L (46-116); ALT/SGPT 31 U/L (7.0-40); AST/SGOT 21 U/L (<34); BILIRUBIN,TOTAL < 0.2 MG/DL (0.3-1.2); BLOOD UREA NITROGEN 12 MG/DL (9-23); CALCIUM LEVEL 9.1 MG/DL (8.5-10.1); CARBON DIOXIDE LEVEL 20 MMOL/L (20-31); CHLORIDE LEVEL 102 MMOL/L (98-107); CREATININE FOR GFR 0.46 MG/DL (0.70-1.30); GLOMERULAR FILTRATION RATE > 60.0 (>60); GLUCOSE, FASTING 312 MG/DL (60-100); SODIUM LEVEL 139 MMOL/L (136-145)
[2022-07-12 20:39] LABS: THYROID STIMULATING HORMONE 0.925 uIU/ML (0.55-4.78)
[2022-07-12 20:48] LABS: RSV AMPLIFICATION NEGATIVE (NEGATIVE)
[2022-07-12] MEDS ORDERED: LIDOCAINE 1% MDV 20ML VIAL SC ONE (22:30)
[2022-07-12 23:33] LABS: BARBITURATES URINE NEGATIVE (NEGATIVE); BENZODIAZEPINES URINE NEGATIVE (NEGATIVE); CANNABINOIDS URINE NEGATIVE (NEGATIVE); COCAINE METABOLITE URINE NEGATIVE (NEGATIVE); METHADONE URINE NEGATIVE (NEGATIVE); OPIATES URINE NEGATIVE (NEGATIVE); PHENCYCLIDINE URINE NEGATIVE (NEGATIVE)
[2022-07-13 00:29] LABS: AMPHETAMINES LEVEL URINE NEGATIVE (NEGATIVE)
[2022-07-13] MEDS ORDERED: MOM 30ML SUSPENSION UDC PO PRN (01:45)
[2022-07-13] MEDS ORDERED: OLANZapine ORAL DISINTEGRATING TAB 5MG PO PRN (01:45)
[2022-07-13] MEDS ORDERED: MAALOX 30 ML SUSP *UDC PO PRN (01:45)
[2022-07-13] MEDS ORDERED: ACETAMINOPHEN TAB 650MG DOSE (2X325MG) PO PRN (01:45)
[2022-07-13] MEDS ORDERED: HYDR50TA70 PO (02:24)
[2022-07-13] MEDS ORDERED: ZOLO100T PO (02:24)
[2022-07-13] MEDS ORDERED: TRAZ-186 PO (02:24)
[2022-07-13] MEDS ORDERED: HOME MED LIST COMPLETE! XX SCH (02:25)
[2022-07-13] MEDS ORDERED: VITMTA PO (02:27)
[2022-07-13] MEDS ORDERED: GLUCAGON INJ 1MG VIAL SC PRN (02:35)
[2022-07-13] MEDS ORDERED: GLUCOSE 4GM CHEW TABLET PO PRN (02:35)
[2022-07-13] MEDS ORDERED: DEXTROSE 50% 50ML SYRINGE IV PRN (02:35)
[2022-07-13] MEDS ORDERED: traZODone 50 MG TAB PO PRN (02:35)
[2022-07-13] MEDS ORDERED: SODIUM CHLORIDE NASAL 0.65% SPRAY BTL (OCEAN) PRN (05:10)
[2022-07-13] MEDS ORDERED: guaiFENesin 200 MG TAB PO PRN (05:10)
[2022-07-13] MEDS: INSULIN LISPRO (NovoLOG) PER UNIT SC SCH ×4 (06:41→21:00)
[2022-07-13] MEDS: MULTIVITAMINS/MINERALS THERAP 1 TAB PO SCH (08:53)
[2022-07-13] MEDS: CETIRIZINE (ZyrTEC) 10 MG TAB PO SCH (08:53)
[2022-07-13] MEDS: ATORVASTATIN 10 MG TAB PO SCH (08:53)
[2022-07-13] MEDS: NICOTINE 7 MG/24 HR TRANSDERMAL TD SCH ×2 (08:53→09:00)
[2022-07-13] MEDS: metFORMIN (GLUCOPHAGE) 1000MG TABLET PO SCH ×2 (08:53→17:25)
[2022-07-13] MEDS: LEVEMIR (INSULIN DETEMIR) 1 UNITS/0.01ML SC SCH (08:54)
[2022-07-13 18:00] VITALS: BP 130/84
[2022-07-13] MEDS ORDERED: SERTRALINE 100 MG TAB PO SCH (21:00)
[2022-07-13] MEDS: hydrOXYzine 50 MG TAB PO PRN (21:02)
[2022-07-13] MEDS: SERTRALINE HCL 25 MG TABLET PO SCH (21:02)
[2022-07-13] MEDS: ARIPiprazole 2 MG TAB PO SCH (21:02)
[2022-07-13] MEDS: traZODone 50 MG TAB PO PRN (21:02)
[2022-07-13] MEDS: SERTRALINE 100 MG TAB PO SCH (21:02)
[2022-07-14 06:18] VITALS: BP 145/84
[2022-07-14] MEDS: INSULIN LISPRO (NovoLOG) PER UNIT SC SCH ×4 (06:51→20:34)
[2022-07-14] MEDS: MULTIVITAMINS/MINERALS THERAP 1 TAB PO SCH (08:28)
[2022-07-14] MEDS: NICOTINE 7 MG/24 HR TRANSDERMAL TD SCH ×2 (08:29→08:48)
[2022-07-14] MEDS: metFORMIN (GLUCOPHAGE) 1000MG TABLET PO SCH ×2 (08:29→17:25)
[2022-07-14] MEDS: ATORVASTATIN 10 MG TAB PO SCH (08:29)
[2022-07-14] MEDS: CETIRIZINE (ZyrTEC) 10 MG TAB PO SCH (08:29)
[2022-07-14] MEDS: LEVEMIR (INSULIN DETEMIR) 1 UNITS/0.01ML SC SCH (08:30)
[2022-07-14 17:35] VITALS: BP 136/70
[2022-07-14] MEDS: traZODone 50 MG TAB PO PRN (20:35)
[2022-07-14] MEDS: hydrOXYzine 50 MG TAB PO PRN (20:35)
[2022-07-14] MEDS: SERTRALINE 100 MG TAB PO SCH (20:35)
[2022-07-14] MEDS: ARIPiprazole 2 MG TAB PO SCH (20:36)
[2022-07-14] MEDS: SERTRALINE HCL 25 MG TABLET PO SCH (20:36)
[2022-07-15 06:16] VITALS: BP 122/77
[2022-07-15] MEDS: INSULIN LISPRO (NovoLOG) PER UNIT SC SCH ×4 (06:55→21:00)
[2022-07-15] MEDS: metFORMIN (GLUCOPHAGE) 1000MG TABLET PO SCH ×2 (07:35→17:04)
[2022-07-15] MEDS: NICOTINE 7 MG/24 HR TRANSDERMAL TD SCH (09:00)
[2022-07-15] MEDS: CETIRIZINE (ZyrTEC) 10 MG TAB PO SCH (09:33)
[2022-07-15] MEDS: MULTIVITAMINS/MINERALS THERAP 1 TAB PO SCH (09:33)
[2022-07-15] MEDS: ATORVASTATIN 10 MG TAB PO SCH (09:34)
[2022-07-15] MEDS: LEVEMIR (INSULIN DETEMIR) 1 UNITS/0.01ML SC SCH (09:34)
[2022-07-15 17:49] VITALS: BP 140/80
[2022-07-15] MEDS: SERTRALINE 100 MG TAB PO SCH (21:24)
[2022-07-15] MEDS: SERTRALINE HCL 25 MG TABLET PO SCH (21:24)
[2022-07-15] MEDS: ARIPiprazole 2 MG TAB PO SCH (21:24)
[2022-07-15] MEDS: traZODone 50 MG TAB PO PRN (21:25)
[2022-07-16] MEDS: INSULIN LISPRO (NovoLOG) PER UNIT SC SCH (06:45)
[2022-07-16 06:57] VITALS: BP 145/90
[2022-07-16] MEDS: NICOTINE 7 MG/24 HR TRANSDERMAL TD SCH (08:52)
[2022-07-16] MEDS: ATORVASTATIN 10 MG TAB PO SCH (09:01)
[2022-07-16] MEDS: MULTIVITAMINS/MINERALS THERAP 1 TAB PO SCH (09:01)
[2022-07-16] MEDS: CETIRIZINE (ZyrTEC) 10 MG TAB PO SCH (09:01)
[2022-07-16] MEDS: metFORMIN (GLUCOPHAGE) 1000MG TABLET PO SCH (09:01)
[2022-07-16] MEDS: LEVEMIR (INSULIN DETEMIR) 1 UNITS/0.01ML SC SCH (09:05)
[2022-07-16] MEDS ORDERED: ZOLO100T PO (09:36)
[2022-07-16] MEDS ORDERED: NICO7PA TD (09:36)
[2022-07-16] MEDS ORDERED: SERT25TA21 PO (09:36)
[2022-07-16] MEDS ORDERED: ABIL1TAB13 PO (09:36)
== END 2022-07-16 11:35 | disposition home or self-care (01) | DRG 751 ==
LOC: M ED 19:39 → EDBD 19:39 → M ED INP 07-13 01:45 → M PSY 07-13 03:50
PROVIDERS: ADMIT Student in an Organized Health Care Education/Training Program; ATTEND Student in an Organized Health Care Education/Training Program
DX: F33.1 Major depressive disorder, recurrent, moderate (principal); U07.1 COVID-19; E11.65 Type 2 diabetes mellitus with hyperglycemia; Z91.14 Patient's other noncompliance with medication regimen; F43.10 Post-traumatic stress disorder, unspecified; F90.9 Attention-deficit hyperactivity disorder, unspecified type; F60.2 Antisocial personality disorder; F17.200 Nicotine dependence, unspecified, uncomplicated; F60.89 Other specific personality disorders; F10.10 Alcohol abuse, uncomplicated; Z79.4 Long term (current) use of insulin; Z79.899 Other long term (current) drug therapy; Z63.0 Problems in relationship with spouse or partner; S51.812A Laceration without foreign body of left forearm, initial encounter; X78.8XXA Intentional self-harm by other sharp object, initial encounter; Y92.009 Unspecified place in unspecified non-institutional (private) residence as the place of occurrence of the external cause; Y93.89 Activity, other specified; Y99.8 Other external cause status

== ENCOUNTER → 2022-10-22 | Outpatient (REF) | payer OTHER ==
[~2022-10-22] MED LIST changes: +ABIL1TAB13 PO; +INSU100I6 SC; -LEVE1INJ5 SC; +NICO7PA TD; +SERT25TA21 PO; +TRAZ-186 PO; +VITMTA PO
[2022-10-22 18:37] LABS: HEMATOCRIT 48.5 % (42.0-52.0); HEMOGLOBIN 15.7 g/dl (13.5-17.5); MEAN CORPUSCULAR HEMOGLOBIN 28.5 pg (27.0-33.0); MEAN CORPUSCULAR HGB CONC 32.4 g/dl (32.0-36.5); PLATELET COUNT, AUTOMATED 276 10^3/uL (150-450); RED BLOOD COUNT 5.51 10^6/uL (4.30-6.10); WHITE BLOOD COUNT 13.6 10^3/uL (4.0-10.0)
[2022-10-22 18:42] LABS: ALBUMIN 3.5 G/DL (3.2-5.2); ALKALINE PHOSPHATASE 134 U/L (46-116); ALT/SGPT 24 U/L (7.0-40); AST/SGOT 13 U/L (<34); BILIRUBIN,TOTAL 0.3 MG/DL (0.3-1.2); BLOOD UREA NITROGEN 11 MG/DL (9-23); CALCIUM LEVEL 9.2 MG/DL (8.5-10.1); CARBON DIOXIDE LEVEL 27 MMOL/L (20-31); CHLORIDE LEVEL 100 MMOL/L (98-107); CHOLESTEROL LEVEL 317 MG/DL (<200); CHOLESTEROL RISK RATIO 8.49 (<5); CREATININE FOR GFR 0.46 MG/DL (0.70-1.30); GLOMERULAR FILTRATION RATE > 60.0 (>60); GLUCOSE, FASTING 353 MG/DL (60-100); HDL CHOLESTEROL 37.3 MG/DL (>40); NON-HDL-C 279.7 MG/DL; POTASSIUM SERUM 4.4 MMOL/L (3.5-5.1); SODIUM LEVEL 134 MMOL/L (136-145); TOTAL PROTEIN 6.5 G/DL (5.7-8.2); TRIGLYCERIDES LEVEL 1245 MG/DL (<150)
[2022-10-22 20:34] LABS: CREATININE, URINE 31.9 MG/DL; MAU/CREAT RATIO 9.4 MCG/MG (0.0-30.0)
== END ==
LOC: M LAB REF 16:16
PROVIDERS: ATTEND Physician Assistant
DX: E11.65 Type 2 diabetes mellitus with hyperglycemia (principal)

== ENCOUNTER 2023-01-17 15:06 | Emergency (ER) | payer MEDICAID, OTHER ==
[~2023-01-17] VITALS: Ht 170.2 cm; Wt 67.3 kg
[~2023-01-17 15:06] MED LIST changes: -COMF1MIS25 SC; +INSU1MIS SC
[2023-01-17 16:56] LABS: BASO # 0.1 10^3/uL (0.0-0.2); BASO % 0.5 % (0.0-1.0); EOS # 0.1 10^3/uL (0.0-0.5); EOS % 0.5 % (0.0-3.0); HEMATOCRIT 44.7 % (42.0-52.0); HEMOGLOBIN 14.7 g/dl (13.5-17.5); LYMPH # 2.7 10^3/uL (1.5-5.0); LYMPH % 19.4 % (24.0-44.0); MEAN CORPUSCULAR HEMOGLOBIN 28.3 pg (27.0-33.0); MEAN CORPUSCULAR HGB CONC 32.9 g/dl (32.0-36.5); MEAN CORPUSCULAR VOLUME 86.1 fl (80.0-96.0); MONO # 0.8 10^3/uL (0.0-0.8); MONO % 5.6 % (2.0-8.0); NEUTROPHILS # 10.2 10^3/uL (1.5-8.5); NEUTROPHILS % 73.5 % (36.0-66.0); PLATELET COUNT, AUTOMATED 324 10^3/uL (150-450); RED BLOOD COUNT 5.19 10^6/uL (4.30-6.10); WHITE BLOOD COUNT 13.8 10^3/uL (4.0-10.0)
[2023-01-17 17:28] LABS: LIPASE 43 U/L (12-53)
[2023-01-17 17:40] LABS: ALBUMIN 3.1 G/DL (3.2-5.2); ALKALINE PHOSPHATASE 164 U/L (46-116); ALT/SGPT 14 U/L (7.0-40); AST/SGOT 18 U/L (<34); BILIRUBIN,DIRECT < 0.1 MG/DL (<0.4); BILIRUBIN,TOTAL < 0.2 MG/DL (0.3-1.2); BLOOD UREA NITROGEN 16 MG/DL (9-23); CALCIUM LEVEL 8.9 MG/DL (8.5-10.1); CARBON DIOXIDE LEVEL 24 MMOL/L (20-31); CHLORIDE LEVEL 100 MMOL/L (98-107); CREATININE FOR GFR 0.52 MG/DL (0.70-1.30); GLOMERULAR FILTRATION RATE > 60.0 (>60); GLUCOSE, FASTING 433 MG/DL (60-100); POTASSIUM SERUM 4.2 MMOL/L (3.5-5.1); SODIUM LEVEL 132 MMOL/L (136-145); TOTAL PROTEIN 6.4 G/DL (5.7-8.2)
[2023-01-17] MEDS ORDERED: HumuLIN R (REGULAR) INSULIN (NovoLIN R) **100U/ML** PER UNIT IV ONE (17:50)
[2023-01-17] MEDS ORDERED: NS 1,000 ML IV ONE (17:50)
[2023-01-17] MEDS ORDERED: KETOROLAC 30 MG/ML 1ML VIAL IV ONE (17:50)
[2023-01-17 19:46] LABS: HEMOGLOBIN A1c > 14.0 % (4.0-6.0)
[2023-01-17] MEDS ORDERED: MACR100C43 PO (20:49)
[2023-01-17 20:55] VITALS: BP 128/78; TEMP 98.8; O2SAT 98
== END 2023-01-17 20:56 | disposition home or self-care (01) ==
LOC: M ED 15:06
DX: E11.65 Type 2 diabetes mellitus with hyperglycemia (principal); R10.9 Unspecified abdominal pain; E78.5 Hyperlipidemia, unspecified; F17.200 Nicotine dependence, unspecified, uncomplicated; Z79.4 Long term (current) use of insulin; Z79.899 Other long term (current) drug therapy; Z79.84 Long term (current) use of oral hypoglycemic drugs
CPT/HCPCS: 74176; 80048; 80076; 81001; 83036; 83690; 85025; 96374; 96375; 99284; J1815; J1885

== ENCOUNTER 2023-07-13 06:48 | Emergency (ER) | payer OTHER ==
[~2023-07-13] VITALS: Ht 170.2 cm; Wt 68.4 kg
[~2023-07-13 06:48] MED LIST changes: +MACR100C43 PO
[2023-07-13 06:49] VITALS: BP 127/78; TEMP 97.1; O2SAT 96
[2023-07-13 07:57] LABS: BASO % 0.4 % (0.0-1.0); EOS # 0.2 10^3/uL (0.0-0.5); EOS % 1.5 % (0.0-3.0); HEMATOCRIT 44.7 % (42.0-52.0); HEMOGLOBIN 15.1 g/dl (13.5-17.5); LYMPH # 3.2 10^3/uL (1.5-5.0); LYMPH % 29.1 % (24.0-44.0); MEAN CORPUSCULAR HGB CONC 33.8 g/dl (32.0-36.5); MEAN CORPUSCULAR VOLUME 85.8 fl (80.0-96.0); MONO # 0.7 10^3/uL (0.0-0.8); MONO % 5.8 % (2.0-8.0); NEUTROPHILS % 62.9 % (36.0-66.0); PLATELET COUNT, AUTOMATED 316 10^3/uL (150-450); RED BLOOD COUNT 5.21 10^6/uL (4.30-6.10); WHITE BLOOD COUNT 11.1 10^3/uL (4.0-10.0)
[2023-07-13 08:25] LABS: LIPASE 29 U/L (12-53)
[2023-07-13 08:27] LABS: ALBUMIN 3.5 G/DL (3.2-5.2); ALKALINE PHOSPHATASE 124 U/L (46-116); ALT/SGPT 36 U/L (7.0-40); AST/SGOT 16 U/L (<34); BILIRUBIN,DIRECT < 0.1 MG/DL (<0.4); BILIRUBIN,TOTAL 0.2 MG/DL (0.3-1.2); TOTAL PROTEIN 6.5 G/DL (5.7-8.2)
[2023-07-13] MEDS ORDERED: ISOVUE-370 76% 100ML VIAL As Ordered ONE (08:49)
[2023-07-13] MEDS ORDERED: ONDANSETRON 4MG 2ML VIAL IV ONE (08:50)
[2023-07-13] MEDS ORDERED: KETOROLAC 30 MG/ML 1ML VIAL IV ONE (08:50)
== END 2023-07-13 11:23 | disposition home or self-care (01) ==
LOC: M ED 06:48
DX: R10.11 Right upper quadrant pain (principal); E11.9 Type 2 diabetes mellitus without complications; I10 Essential (primary) hypertension; K21.9 Gastro-esophageal reflux disease without esophagitis; E78.5 Hyperlipidemia, unspecified; F41.9 Anxiety disorder, unspecified; F32.A Depression, unspecified; Z87.19 Personal history of other diseases of the digestive system; Z79.4 Long term (current) use of insulin; Z79.899 Other long term (current) drug therapy
CPT/HCPCS: 74176; 80047; 80076; 81001; 83690; 85025; 96374; 96375; 99283; J1885; J2405; Q9967

== ENCOUNTER → 2023-08-22 | Outpatient (REF) | payer OTHER, SELFPAY ==
[2023-08-22 13:51] LABS: BASO # 0.1 10^3/uL (0.0-0.2); BASO % 0.6 % (0.0-1.0); EOS # 0.2 10^3/uL (0.0-0.5); EOS % 1.8 % (0.0-3.0); HEMATOCRIT 48.8 % (42.0-52.0); HEMOGLOBIN 16.5 g/dl (13.5-17.5); LYMPH # 3.2 10^3/uL (1.5-5.0); LYMPH % 27.5 % (24.0-44.0); MEAN CORPUSCULAR HEMOGLOBIN 29.5 pg (27.0-33.0); MEAN CORPUSCULAR HGB CONC 33.8 g/dl (32.0-36.5); MEAN CORPUSCULAR VOLUME 87.1 fl (80.0-96.0); MONO # 0.8 10^3/uL (0.0-0.8); MONO % 6.9 % (2.0-8.0); NEUTROPHILS # 7.2 10^3/uL (1.5-8.5); NEUTROPHILS % 62.9 % (36.0-66.0); PLATELET COUNT, AUTOMATED 326 10^3/uL (150-450); WHITE BLOOD COUNT 11.5 10^3/uL (4.0-10.0)
[2023-08-22 14:06] LABS: HEMOGLOBIN A1c > 14.0 % (4.0-6.0)
[2023-08-22 14:23] LABS: THYROID STIMULATING HORMONE 1.674 uIU/ML (0.55-4.78)
[2023-08-22 14:42] LABS: ALBUMIN 3.6 G/DL (3.2-5.2); ALKALINE PHOSPHATASE 111 U/L (46-116); ALT/SGPT 26 U/L (7.0-40); AST/SGOT 10 U/L (<34); BILIRUBIN,TOTAL 0.4 MG/DL (0.3-1.2); BLOOD UREA NITROGEN 12 MG/DL (9-23); CARBON DIOXIDE LEVEL 28 MMOL/L (20-31); CHLORIDE LEVEL 101 MMOL/L (98-107); CHOLESTEROL LEVEL 248 MG/DL (<200); CHOLESTEROL RISK RATIO 6.26 (<5); CREATININE FOR GFR 0.58 MG/DL (0.70-1.30); GLOMERULAR FILTRATION RATE > 60.0 (>60); HDL CHOLESTEROL 39.6 MG/DL (>40); LDL CHOLESTEROL 139.4 MG/DL (<100); NON-HDL-C 208.4 MG/DL; POTASSIUM SERUM 4.8 MMOL/L (3.5-5.1); SODIUM LEVEL 133 MMOL/L (136-145); TOTAL PROTEIN 6.7 G/DL (5.7-8.2); TRIGLYCERIDES LEVEL 345 MG/DL (<150)
[2023-08-22 14:43] LABS: GLUCOSE, FASTING 530 MG/DL (60-100)
== END ==
LOC: M LAB REF 12:31
PROVIDERS: ATTEND Physician Assistant
DX: E11.65 Type 2 diabetes mellitus with hyperglycemia (principal); E78.5 Hyperlipidemia, unspecified; R52 Pain, unspecified

== ENCOUNTER 2023-11-07 01:53 | Emergency (ER) | payer SELFPAY ==
[~2023-11-07] VITALS: Ht 170.2 cm; Wt 65.2 kg
[2023-11-07 03:23] LABS: BASO # 0.1 10^3/uL (0.0-0.2); BASO % 0.6 % (0.0-1.0); EOS # 0.2 10^3/uL (0.0-0.5); EOS % 1.8 % (0.0-3.0); HEMATOCRIT 48.6 % (42.0-52.0); HEMOGLOBIN 16.4 g/dl (13.5-17.5); LYMPH # 3.8 10^3/uL (1.5-5.0); LYMPH % 40.3 % (24.0-44.0); MEAN CORPUSCULAR HEMOGLOBIN 29.4 pg (27.0-33.0); MEAN CORPUSCULAR HGB CONC 33.7 g/dl (32.0-36.5); MEAN CORPUSCULAR VOLUME 87.1 fl (80.0-96.0); MONO # 0.8 10^3/uL (0.0-0.8); MONO % 8.6 % (2.0-8.0); NEUTROPHILS # 4.6 10^3/uL (1.5-8.5); NEUTROPHILS % 48.4 % (36.0-66.0); PLATELET COUNT, AUTOMATED 291 10^3/uL (150-450); RED BLOOD COUNT 5.58 10^6/uL (4.30-6.10); WHITE BLOOD COUNT 9.4 10^3/uL (4.0-10.0)
[2023-11-07 03:47] LABS: LIPASE 64 U/L (12-53)
[2023-11-07 03:49] LABS: ALBUMIN 3.3 G/DL (3.2-5.2); ALKALINE PHOSPHATASE 99 U/L (46-116); ALT/SGPT 22 U/L (7.0-40); AST/SGOT < 8 U/L (<34); BILIRUBIN,DIRECT < 0.1 MG/DL (<0.4); BILIRUBIN,TOTAL 0.2 MG/DL (0.3-1.2); BLOOD UREA NITROGEN 12 MG/DL (9-23); CALCIUM LEVEL 8.7 MG/DL (8.5-10.1); CARBON DIOXIDE LEVEL 28 MMOL/L (20-31); CHLORIDE LEVEL 104 MMOL/L (98-107); CREATININE FOR GFR 0.62 MG/DL (0.70-1.30); GLOMERULAR FILTRATION RATE > 60.0 (>60); GLUCOSE, FASTING 338 MG/DL (60-100); SODIUM LEVEL 138 MMOL/L (136-145); TOTAL PROTEIN 6.6 G/DL (5.7-8.2)
[2023-11-07] MEDS: NS 1,000 ML IV SCH (06:34)
[2023-11-07] MEDS: MORPHINE 4 MG/ML 1ML VIAL IV ONE (06:35)
[2023-11-07] MEDS: GASTROGRAFIN SOLUTION 30ML PO SCH (07:01)
[2023-11-07] MEDS ORDERED: ISOVUE-370 76% 100ML VIAL As Ordered ONE (08:04)
[2023-11-07] MEDS: KETOROLAC 30 MG/ML 1ML VIAL IV ONE (10:25)
[2023-11-07 10:30] VITALS: BP 150/93
[2023-11-07] MEDS ORDERED: MEDR4PAK PO (10:43)
[2023-11-07] MEDS ORDERED: NAPR-849 PO (10:43)
[2023-11-07 11:00] VITALS: TEMP 97.3; O2SAT 99
== END 2023-11-07 11:18 | disposition home or self-care (01) ==
LOC: M ED 01:53
DX: N28.0 Ischemia and infarction of kidney (principal); M51.26 Other intervertebral disc displacement, lumbar region; E11.9 Type 2 diabetes mellitus without complications; K21.9 Gastro-esophageal reflux disease without esophagitis; I10 Essential (primary) hypertension; E78.5 Hyperlipidemia, unspecified; F41.9 Anxiety disorder, unspecified; F32.A Depression, unspecified; F17.210 Nicotine dependence, cigarettes, uncomplicated; Z79.899 Other long term (current) drug therapy; Z79.4 Long term (current) use of insulin; Z79.84 Long term (current) use of oral hypoglycemic drugs
CPT/HCPCS: 72148; 74177; 80048; 80076; 81001; 83690; 85025; 93041; 96374; 96375; 99285; J1885; Q9967

== ENCOUNTER → 2023-12-02 | Outpatient (CLI) | payer SELFPAY ==
[~2023-12-02] MED LIST changes: +MEDR4PAK PO; +NAPR-849 PO
== END ==
LOC: M SOG 07:51
PROVIDERS: ATTEND Physician Assistant
DX: Z53.9 Procedure and treatment not carried out, unspecified reason (principal)

== ENCOUNTER 2024-01-01 00:02 | Emergency (ER) | payer MEDICAID, OTHER, SELFPAY ==
[~2024-01-01] VITALS: Ht 170.2 cm; Wt 66.5 kg
[2024-01-01 00:02] VITALS: BP 138/90; TEMP 98.1
[2024-01-01] MEDS ORDERED: METH-1165 PO (01:23)
[2024-01-01] MEDS ORDERED: MEDR4PAK PO (01:23)
[2024-01-01] MEDS ORDERED: ASPE4PAD TOP (01:23)
[2024-01-01 01:33] VITALS: O2SAT 97
[2024-01-01] MEDS: PERCOCET 5MG/325MG TAB PO ONE (01:33)
[2024-01-01] MEDS: KETOROLAC 30 MG/ML 1ML VIAL IM ONE (02:13)
== END 2024-01-01 02:39 | disposition home or self-care (01) ==
LOC: M ED 00:02
DX: M51.36 Other intervertebral disc degeneration, lumbar region (principal); M54.31 Sciatica, right side; F17.210 Nicotine dependence, cigarettes, uncomplicated; Z79.4 Long term (current) use of insulin; Z79.84 Long term (current) use of oral hypoglycemic drugs; Z79.899 Other long term (current) drug therapy
CPT/HCPCS: 96372; 99283; J1885

== ENCOUNTER 2024-01-12 23:49 | Emergency (ER) | payer MEDICAID ==
[~2024-01-12] VITALS: Ht 170.2 cm; Wt 70.5 kg
[~2024-01-12 23:49] MED LIST changes: +ASPE4PAD TOP; +METH-1165 PO
[2024-01-13 00:35] LABS: HEMATOCRIT 49.3 % (42.0-52.0); HEMOGLOBIN 16.4 g/dl (13.5-17.5); MEAN CORPUSCULAR HEMOGLOBIN 29.9 pg (27.0-33.0); MEAN CORPUSCULAR HGB CONC 33.3 g/dl (32.0-36.5); MEAN CORPUSCULAR VOLUME 89.8 fl (80.0-96.0); PLATELET COUNT, AUTOMATED 356 10^3/uL (150-450); RED BLOOD COUNT 5.49 10^6/uL (4.30-6.10); WHITE BLOOD COUNT 13.5 10^3/uL (4.0-10.0)
[2024-01-13 00:47] LABS: ETHYL ALCOHOL (ETHANOL) 0.194 % (0.000-0.010)
[2024-01-13 00:48] LABS: ALBUMIN 3.9 G/DL (3.2-5.2); ALKALINE PHOSPHATASE 109 U/L (46-116); ALT/SGPT 21 U/L (7.0-40); AST/SGOT 12 U/L (<34); BILIRUBIN,DIRECT < 0.1 MG/DL (<0.4); BILIRUBIN,TOTAL 0.3 MG/DL (0.3-1.2); BLOOD UREA NITROGEN 11 MG/DL (9-23); CARBON DIOXIDE LEVEL 24 MMOL/L (20-31); CHLORIDE LEVEL 106 MMOL/L (98-107); CREATININE FOR GFR 0.59 MG/DL (0.70-1.30); GLOMERULAR FILTRATION RATE > 60.0 (>60); GLUCOSE, FASTING 396 MG/DL (60-100); POTASSIUM SERUM 3.9 MMOL/L (3.5-5.1); SALICYLATE LEVEL < 3.0 MG/DL (<30); SODIUM LEVEL 140 MMOL/L (136-145)
[2024-01-13 00:50] LABS: THYROID STIMULATING HORMONE 2.372 uIU/ML (0.55-4.78)
[2024-01-13] MEDS: LORazepam 2 MG/ML 1ML VIAL IM ONE (00:54)
[2024-01-13] MEDS: diphenhydrAMINE 50MG/ML VIAL IM ONE (00:54)
[2024-01-13] MEDS: HALOPERIDOL LACTATE 5MG/ML VIAL IM ONE (00:58)
[2024-01-13 01:54] LABS: AMPHETAMINES LEVEL URINE NEGATIVE (NEGATIVE); BARBITURATES URINE NEGATIVE (NEGATIVE); COCAINE METABOLITE URINE NEGATIVE (NEGATIVE); METHADONE URINE NEGATIVE (NEGATIVE); OPIATES URINE NEGATIVE (NEGATIVE); PHENCYCLIDINE URINE NEGATIVE (NEGATIVE)
[2024-01-13 01:55] LABS: BENZODIAZEPINES URINE NEGATIVE (NEGATIVE)
[2024-01-13 02:11] LABS: CANNABINOIDS URINE POSITIVE (NEGATIVE)
[2024-01-13] MEDS ORDERED: GLUCOSE 4 GM CHEW PO PRN (07:30)
[2024-01-13] MEDS ORDERED: GLUCAGON INJ 1MG VIAL SC PRN (07:30)
[2024-01-13] MEDS ORDERED: DEXTROSE 50% 50ML SYRINGE IV PRN (07:30)
[2024-01-13] MEDS: INSULIN LISPRO (NovoLOG) PER UNIT SC SCH (08:31)
[2024-01-13] MEDS ORDERED: MED REC CURRENTLY UNOBTAINABLE XX SCH (10:35)
[2024-01-13] MEDS ORDERED: HYDR50TA70 PO (12:55)
[2024-01-13] MEDS ORDERED: INSU100I24 INJ (12:55)
[2024-01-13] MEDS ORDERED: ARIP1TAB6 PO (12:55)
[2024-01-13] MEDS ORDERED: LIDO1ADH10 TOP (12:55)
[2024-01-13] MEDS ORDERED: ZOLO100T PO (12:59)
[2024-01-13] MEDS ORDERED: TRAZ-252 PO (12:59)
[2024-01-13] MEDS ORDERED: METH-1165 PO (12:59)
[2024-01-13] MEDS ORDERED: BUPR-71 PO (12:59)
[2024-01-13] MEDS ORDERED: INSU100I48 SC (12:59)
[2024-01-13] MEDS ORDERED: RA N220C PO (13:02)
[2024-01-13] MEDS ORDERED: HOME MED LIST COMPLETE! XX SCH (13:05)
[2024-01-13 15:44] VITALS: BP 138/75; TEMP 98; O2SAT 97
[2024-01-13] MEDS ORDERED: INSULIN LISPRO (NovoLOG) PER UNIT SC SCH (21:00)
== END 2024-01-13 16:00 | disposition home or self-care (01) ==
LOC: M ED 23:49
DX: F43.0 Acute stress reaction (principal); F10.129 Alcohol abuse with intoxication, unspecified; F19.10 Other psychoactive substance abuse, uncomplicated; F17.200 Nicotine dependence, unspecified, uncomplicated; F12.10 Cannabis abuse, uncomplicated; Z79.02 Long term (current) use of antithrombotics/antiplatelets; Z79.899 Other long term (current) drug therapy
CPT/HCPCS: 80048; 80076; 80143; 80307; 82077; 84443; 85027; 96372; 99285; J1200; J1630; J1815; J2060

== ENCOUNTER 2024-03-10 22:00 | Inpatient (IN) | payer MEDICAID, OTHER ==
[~2024-03-10] VITALS: Ht 170.2 cm; Wt 67.1 kg
[~2024-03-10 22:00] MED LIST changes: +ARIP1TAB6 PO; +BUPR-71 PO; +INSU100I24 INJ; +INSU100I48 SC; +LIDO1ADH10 TOP; +RA N220C PO
[2024-03-10 22:48] LABS: HEMATOCRIT 46.9 % (42.0-52.0); HEMOGLOBIN 15.6 g/dl (13.5-17.5); MEAN CORPUSCULAR HEMOGLOBIN 29.5 pg (27.0-33.0); MEAN CORPUSCULAR HGB CONC 33.3 g/dl (32.0-36.5); MEAN CORPUSCULAR VOLUME 88.8 fl (80.0-96.0); PLATELET COUNT, AUTOMATED 287 10^3/uL (150-450); RED BLOOD COUNT 5.28 10^6/uL (4.30-6.10); WHITE BLOOD COUNT 11.5 10^3/uL (4.0-10.0)
[2024-03-10 23:09] LABS: ETHYL ALCOHOL (ETHANOL) 0.004 % (0.000-0.010)
[2024-03-10 23:11] LABS: ALBUMIN 3.6 G/DL (3.2-5.2); ALKALINE PHOSPHATASE 123 U/L (46-116); ALT/SGPT 21 U/L (7.0-40); AST/SGOT 8 U/L (<34); BILIRUBIN,DIRECT < 0.1 MG/DL (<0.4); BILIRUBIN,TOTAL 0.3 MG/DL (0.3-1.2); BLOOD UREA NITROGEN 17 MG/DL (9-23); CALCIUM LEVEL 8.8 MG/DL (8.5-10.1); CARBON DIOXIDE LEVEL 30 MMOL/L (20-31); CHLORIDE LEVEL 107 MMOL/L (98-107); CREATININE FOR GFR 0.51 MG/DL (0.70-1.30); GLOMERULAR FILTRATION RATE > 60.0 (>60); GLUCOSE, FASTING 244 MG/DL (60-100); POTASSIUM SERUM 3.9 MMOL/L (3.5-5.1); SALICYLATE LEVEL < 3.0 MG/DL (<30); SODIUM LEVEL 141 MMOL/L (136-145); TOTAL PROTEIN 6.6 G/DL (5.7-8.2)
[2024-03-10 23:13] LABS: THYROID STIMULATING HORMONE 1.066 uIU/ML (0.55-4.78)
[2024-03-10] MEDS ORDERED: JARD1TAB3 PO (23:49)
[2024-03-10] MEDS ORDERED: ACET-683 PO (23:49)
[2024-03-10] MEDS ORDERED: CYCL-707 PO (23:49)
[2024-03-10] MEDS ORDERED: HOME MED LIST COMPLETE! XX SCH (23:50)
[2024-03-11 00:06] LABS: METHADONE URINE NEGATIVE (NEGATIVE); OPIATES URINE NEGATIVE (NEGATIVE)
[2024-03-11 00:08] LABS: AMPHETAMINES LEVEL URINE NEGATIVE (NEGATIVE); BARBITURATES URINE NEGATIVE (NEGATIVE); BENZODIAZEPINES URINE NEGATIVE (NEGATIVE); COCAINE METABOLITE URINE NEGATIVE (NEGATIVE); PHENCYCLIDINE URINE NEGATIVE (NEGATIVE)
[2024-03-11 00:12] LABS: CANNABINOIDS URINE POSITIVE (NEGATIVE)
[2024-03-11 03:47] VITALS: BP 144/80; TEMP 97.6; O2SAT 97
[2024-03-11] MEDS ORDERED: DEXTROSE 50% 50ML SYRINGE IV PRN (04:45)
[2024-03-11] MEDS ORDERED: GLUCAGON INJ 1MG VIAL SC PRN (04:45)
[2024-03-11] MEDS ORDERED: GLUCOSE 4 GM CHEW PO PRN (04:45)
[2024-03-11] MEDS: INSULIN LISPRO (NovoLOG) PER UNIT SC SCH ×2 (06:47→21:00)
[2024-03-11] MEDS ORDERED: CYCLOBENZAPRINE 10MG TABLET PO PRN (08:55)
[2024-03-11] MEDS ORDERED: hydrOXYzine 50 MG TAB PO PRN (08:55)
[2024-03-11] MEDS ORDERED: ACETAMINOPHEN 500 MG TAB PO PRN (08:55)
[2024-03-11] MEDS ORDERED: ENTER DRUG NAME HERE (PATIENT'S OWN MED) PO SCH (09:00)
[2024-03-11] MEDS: NAPROXEN 250 MG TAB PO SCH (09:43)
[2024-03-11] MEDS: SERTRALINE 100 MG TAB PO SCH (09:43)
[2024-03-11] MEDS: LIDOCAINE 5% (LIDODERM) PATCH TD SCH (09:43)
[2024-03-11] MEDS: buPROPion **SR TABLET** (ZYBAN) 150MG PO SCH (09:43)
[2024-03-11] MEDS: metFORMIN (GLUCOPHAGE) 1000MG TABLET PO SCH (09:44)
[2024-03-11] MEDS: DAPAGLIFLOZIN PROPANEDIOL 10MG TABLET (FARXIGA) PO SCH (10:21)
[2024-03-11 16:54] VITALS: BP 148/90; TEMP 97.2; O2SAT 97
[2024-03-11] MEDS: LEVEMIR (INSULIN DETEMIR) 1 UNITS/0.01ML SC SCH (21:14)
[2024-03-11] MEDS: traZODone 100 MG TAB PO PRN (21:15)
[2024-03-11] MEDS: ATORVASTATIN 20 MG TAB PO SCH (21:15)
[2024-03-12 06:30] VITALS: BP 135/62; TEMP 98.5; O2SAT 96
[2024-03-12 17:14] VITALS: BP 141/89; TEMP 97.2; O2SAT 99
[2024-03-13 06:29] VITALS: BP 120/64; TEMP 98; O2SAT 98
[2024-03-13 18:30] VITALS: BP 155/86; TEMP 97.6; O2SAT 98
[2024-03-13] MEDS: ARIPiprazole 10 MG TAB PO SCH (20:15)
[2024-03-14 05:50] VITALS: BP 143/79; TEMP 98.2; O2SAT 97
[2024-03-14 15:50] VITALS: BP 126/66; TEMP 97.9; O2SAT 98
[2024-03-14] MEDS: traZODone 50 MG TAB PO PRN (20:32)
[2024-03-15 06:23] VITALS: BP 148/62; TEMP 97.8; O2SAT 96
[2024-03-15 16:33] VITALS: BP 133/74; TEMP 98.1; O2SAT 97
[2024-03-15] MEDS: ARIPiprazole 15 MG TAB (AbiLIFY) PO SCH (20:11)
[2024-03-15] MEDS: traZODone 100 MG TAB PO PRN (20:11)
[2024-03-16 05:41] VITALS: BP 113/62; TEMP 97.2; O2SAT 96
[2024-03-16 18:32] VITALS: BP 140/81; TEMP 97.5
[2024-03-17 06:08] VITALS: BP 122/64; TEMP 98.2; O2SAT 95
[2024-03-17] MEDS ORDERED: ZOLO100T PO (08:13)
[2024-03-17] MEDS ORDERED: TRAZ-257 PO (08:13)
[2024-03-17] MEDS ORDERED: ABIL400I IM (08:13)
[2024-03-17] MEDS ORDERED: HYDR50TA70 PO (08:13)
[2024-03-17] MEDS: ARIPiprazole MONOHYDRATE 400 MG INJ (ABILIFY)(FREE PSY INPT ONLY) IM ONE (09:29)
== END 2024-03-17 14:13 | disposition home or self-care (01) | DRG 754 ==
LOC: M ED 22:00 → M ED INP 03-11 01:57 → M PSY 03-11 03:35
PROVIDERS: ADMIT Psychiatry & Neurology Psychiatry; ATTEND Psychiatry & Neurology Child & Adolescent Psychiatry
DX: F32.A Depression, unspecified (principal); E11.42 Type 2 diabetes mellitus with diabetic polyneuropathy; R45.851 Suicidal ideations; R45.850 Homicidal ideations; F90.9 Attention-deficit hyperactivity disorder, unspecified type; F63.81 Intermittent explosive disorder; F43.10 Post-traumatic stress disorder, unspecified; F60.2 Antisocial personality disorder; K44.9 Diaphragmatic hernia without obstruction or gangrene; F17.210 Nicotine dependence, cigarettes, uncomplicated; Z79.4 Long term (current) use of insulin; Z79.84 Long term (current) use of oral hypoglycemic drugs; Z79.899 Other long term (current) drug therapy; Z56.0 Unemployment, unspecified; Z63.0 Problems in relationship with spouse or partner; Z91.52 Personal history of nonsuicidal self-harm; E78.5 Hyperlipidemia, unspecified

== ENCOUNTER → 2024-03-24 | Outpatient (REF) | payer MEDICAID ==
[~2024-03-24] MED LIST changes: +ABIL400I IM; +ACET-683 PO; +CYCL-707 PO; +JARD1TAB3 PO; +TRAZ-257 PO
[2024-03-24 12:31] LABS: CREATININE, URINE 59.1 MG/DL
[2024-03-24 12:32] LABS: MALB URINE SIEMENS < 3.0 MG/L
[2024-03-24 12:54] LABS: ALBUMIN 3.9 G/DL (3.2-5.2); ALKALINE PHOSPHATASE 119 U/L (46-116); ALT/SGPT 36 U/L (7.0-40); AST/SGOT 10 U/L (<34); BILIRUBIN,TOTAL 0.2 MG/DL (0.3-1.2); BLOOD UREA NITROGEN 13 MG/DL (9-23); CALCIUM LEVEL 9.8 MG/DL (8.5-10.1); CARBON DIOXIDE LEVEL 29 MMOL/L (20-31); CHLORIDE LEVEL 106 MMOL/L (98-107); CHOLESTEROL LEVEL 165 MG/DL (<200); CHOLESTEROL RISK RATIO 4.17 (<5); CREATININE FOR GFR 0.69 MG/DL (0.70-1.30); GLOMERULAR FILTRATION RATE > 60.0 (>60); GLUCOSE, FASTING 168 MG/DL (60-100); HDL CHOLESTEROL 39.5 MG/DL (>40); LDL CHOLESTEROL 87.3 MG/DL (<100); NON-HDL-C 125.5 MG/DL; POTASSIUM SERUM 4.4 MMOL/L (3.5-5.1); SODIUM LEVEL 141 MMOL/L (136-145); TOTAL PROTEIN 7.3 G/DL (5.7-8.2); TRIGLYCERIDES LEVEL 191 MG/DL (<150)
[2024-03-24 13:03] LABS: THYROID STIMULATING HORMONE 2.678 uIU/ML (0.55-4.78); TOTAL 25(OH) VITAMIN D 34.4 NG/ML (20.0-100.0)
== END ==
LOC: M LAB REF 11:35
PROVIDERS: ATTEND Physician Assistant
DX: E11.65 Type 2 diabetes mellitus with hyperglycemia (principal); E55.9 Vitamin D deficiency, unspecified

== ENCOUNTER 2024-09-22 19:35 | Inpatient (IN) | payer MEDICAID, OTHER ==
[~2024-09-22] VITALS: Ht 170.2 cm; Wt 72.2 kg
[~2024-09-22 19:35] MED LIST changes: +ABIL1INJ2 IM; +APAP325T4 PO; +ATOR40TA75 PO; +CEFD1CAP9 PO; +COLA100C5 PO; +GLIP10TA15 PO; -GLIP10TA6 PO; +HYDR1TAB33 PO; -INSU100I24 INJ; +INSU100I24 SQ; +METF-838 PO; +PROB250C PO; +SENN-52 PO; +TRAZ-189 PO; +sertraline
[2024-09-22 20:49] LABS: HEMATOCRIT 47.3 % (42.0-52.0); HEMOGLOBIN 15.7 g/dl (13.5-17.5); MEAN CORPUSCULAR HEMOGLOBIN 27.8 pg (27.0-33.0); MEAN CORPUSCULAR HGB CONC 33.2 g/dl (32.0-36.5); MEAN CORPUSCULAR VOLUME 83.9 fl (80.0-96.0); PLATELET COUNT, AUTOMATED 338 10^3/uL (150-450); RED BLOOD COUNT 5.64 10^6/uL (4.30-6.10); WHITE BLOOD COUNT 8.9 10^3/uL (4.0-10.0)
[2024-09-22 20:51] LABS: AMPHETAMINES LEVEL URINE NEGATIVE (NEGATIVE); BARBITURATES URINE NEGATIVE (NEGATIVE); BENZODIAZEPINES URINE NEGATIVE (NEGATIVE); CANNABINOIDS URINE NEGATIVE (NEGATIVE); COCAINE METABOLITE URINE NEGATIVE (NEGATIVE); METHADONE URINE NEGATIVE (NEGATIVE); OPIATES URINE NEGATIVE (NEGATIVE); PHENCYCLIDINE URINE NEGATIVE (NEGATIVE)
[2024-09-22 20:52] LABS: ETHYL ALCOHOL (ETHANOL) < 0.003 % (0.000-0.010)
[2024-09-22 20:53] LABS: SALICYLATE LEVEL < 3.0 MG/DL (<30)
[2024-09-22 20:57] LABS: THYROID STIMULATING HORMONE 1.534 uIU/ML (0.55-4.78)
[2024-09-22 21:32] LABS: ALKALINE PHOSPHATASE 126 U/L (40-129); ALT/SGPT 24 U/L (7.0-40); AST/SGOT 9 U/L (<34); BILIRUBIN,DIRECT < 0.1 MG/DL (<0.4); BILIRUBIN,TOTAL 0.2 MG/DL (0.3-1.2); BLOOD UREA NITROGEN 16 MG/DL (9-23); CALCIUM LEVEL 9.2 MG/DL (8.5-10.1); CARBON DIOXIDE LEVEL 25 MMOL/L (20-31); CHLORIDE LEVEL 102 MMOL/L (98-107); CREATININE FOR GFR 0.63 MG/DL (0.70-1.30); GLOMERULAR FILTRATION RATE > 60.0 (>60); POTASSIUM SERUM 4.1 MMOL/L (3.5-5.1); SODIUM LEVEL 137 MMOL/L (136-145); TOTAL PROTEIN 7.1 G/DL (5.7-8.2)
[2024-09-22 21:46] LABS: ALBUMIN 3.7 G/DL (3.2-5.2); GLUCOSE, FASTING 460 MG/DL (60-100)
[2024-09-22] MEDS: INSULIN LISPRO (NovoLOG) PER UNIT SC STA ×2 (22:13→23:39)
[2024-09-22] MEDS ORDERED: SEMA1PEN2 SQ (22:39)
[2024-09-22] MEDS ORDERED: LANTINJ4 SC (22:39)
[2024-09-22] MEDS ORDERED: HOME MED LIST COMPLETE! XX SCH (22:40)
[2024-09-23] MEDS: LanTUS (INSULIN GLARGINE INJ) 1 UNITS/0.01 ML SC SCH ×2 (00:54→21:25)
[2024-09-23] MEDS: metFORMIN XR 500MG TAB *GLUCOPHAGE XR PO SCH ×2 (08:00→18:00)
[2024-09-23] MEDS: NICOTINE 14 MG/24 HR TRANSDERMAL TD SCH (09:00)
[2024-09-23] MEDS: ATORVASTATIN 20 MG TAB PO SCH (09:37)
[2024-09-23] MEDS: INSULIN LISPRO (NovoLOG) PER UNIT SC SCH (09:37)
[2024-09-23] MEDS ORDERED: ACETAMINOPHEN 325 MG TAB PO PRN (15:45)
[2024-09-23] MEDS ORDERED: OLANZapine 5 MG TAB PO PRN (15:45)
[2024-09-23] MEDS ORDERED: MAALOX 30 ML SUSP *UDC PO PRN (15:45)
[2024-09-23] MEDS ORDERED: MOM 30ML SUSPENSION UDC PO PRN (15:45)
[2024-09-23 16:17] VITALS: BP 147/77; TEMP 97.3; O2SAT 99
[2024-09-23] MEDS ORDERED: GLUCAGON INJ 1MG VIAL SC PRN (16:35)
[2024-09-23] MEDS ORDERED: GLUCOSE 4 GM CHEW PO PRN (16:35)
[2024-09-23] MEDS ORDERED: DEXTROSE 50% 50ML SYRINGE IV PRN (18:00)
[2024-09-23] MEDS: traZODone 50 MG TAB PO PRN (21:26)
[2024-09-24 06:21] VITALS: BP 125/70; TEMP 97.4; O2SAT 98
[2024-09-24] MEDS: INSULIN LISPRO (NovoLOG) PER UNIT SC SCH ×2 (07:37→17:02)
[2024-09-24] MEDS: ATORVASTATIN 20 MG TAB PO SCH (08:34)
[2024-09-24 15:28] VITALS: BP 118/74; TEMP 97.7; O2SAT 99
[2024-09-24] MEDS ORDERED: ENTER DRUG NAME HERE (PATIENT'S OWN MED) IM ONE (16:10)
[2024-09-25 06:51] VITALS: BP 125/78; TEMP 97.3; O2SAT 100
[2024-09-25] MEDS ORDERED: ENTER DRUG NAME HERE (PATIENT'S OWN MED) PO SCH (09:00)
[2024-09-25] MEDS: SERTRALINE HCL 50 MG TAB PO SCH (09:15)
[2024-09-25 17:24] VITALS: BP 160/86; TEMP 97.7; O2SAT 99
[2024-09-25 18:02] VITALS: BP 148/80
[2024-09-25] MEDS: LanTUS (INSULIN GLARGINE INJ) 1 UNITS/0.01 ML SC SCH (20:09)
[2024-09-26 06:34] VITALS: BP 117/60; TEMP 98; O2SAT 97
[2024-09-26 07:09] LABS: CHOLESTEROL RISK RATIO 4.59 (<5); HDL CHOLESTEROL 45.5 MG/DL (>40); LDL CHOLESTEROL 111.7 MG/DL (<100); NON-HDL-C 163.5 MG/DL
[2024-09-26 08:28] LABS: HEMOGLOBIN A1c > 14.0 % (4.0-6.0)
[2024-09-26] MEDS: ATORVASTATIN 20 MG TAB PO SCH (09:10)
[2024-09-26] MEDS: INSULIN LISPRO (NovoLOG) PER UNIT SC SCH (12:13)
[2024-09-26] MEDS: hydrOXYzine 50 MG TAB PO PRN (14:55)
[2024-09-26] MEDS: LanTUS (INSULIN GLARGINE INJ) 1 UNITS/0.01 ML SC ONE (15:18)
[2024-09-26 15:35] VITALS: BP 128/65; TEMP 98; O2SAT 96
[2024-09-26] MEDS ORDERED: traZODone 50 MG TAB PO SCH ×2 (16:35)
[2024-09-26] MEDS: LanTUS (INSULIN GLARGINE INJ) 1 UNITS/0.01 ML SC SCH (20:20)
[2024-09-26] MEDS: traZODone 100 MG TAB PO SCH (20:20)
[2024-09-27 06:36] VITALS: BP 120/62; TEMP 97.7; O2SAT 95
[2024-09-27 15:39] VITALS: BP 132/69; TEMP 98.2; O2SAT 96
[2024-09-27] MEDS: LORazepam 1 MG TAB PO PRN (20:20)
[2024-09-28 06:27] VITALS: BP 103/55; TEMP 98.4; O2SAT 96
[2024-09-28] MEDS ORDERED: OZEMPIC 1 MG SQ SCH (09:00)
[2024-09-28] MEDS: PREFILLED SQ SCH (09:26)
[2024-09-28] MEDS: OZEMPIC 4 MG/3 ML SQ SCH (09:26)
[2024-09-28] MEDS: ONDANSETRON 4MG TAB PO SCH (13:04)
[2024-09-28] MEDS: LOPERAMIDE 2 MG CAPLET PO ONE (14:47)
[2024-09-28 15:22] VITALS: BP 116/75; TEMP 97.6; O2SAT 99
[2024-09-28] MEDS: LOPERAMIDE 2 MG CAPLET PO PRN (16:34)
[2024-09-28] MEDS: ARIPiprazole 10 MG TAB PO SCH (21:02)
[2024-09-29 06:20] VITALS: BP 124/70; TEMP 97.9; O2SAT 96
[2024-09-29] MEDS ORDERED: JARDIANCE 25 MG PO SCH (09:00)
[2024-09-29] MEDS: diphenhydrAMINE 25MG CAP PO PRN (16:19)
[2024-09-30 06:28] VITALS: BP 139/76; TEMP 97.7; O2SAT 96
[2024-09-30] MEDS ORDERED: ATOR40TA75 PO (08:38)
[2024-09-30] MEDS ORDERED: TRAZ-257 PO (08:38)
[2024-09-30] MEDS ORDERED: INSULANT SC (08:38)
[2024-09-30] MEDS ORDERED: ABIL10TA9 PO (08:38)
[2024-09-30] MEDS ORDERED: SERT50TA29 PO (08:38)
[2024-09-30] MEDS ORDERED: LOPE2CA PO (08:38)
== END 2024-09-30 11:44 | disposition home or self-care (01) | DRG 753 ==
LOC: M ED 19:35 → M ED INP 09-23 15:43 → M PSY 09-23 16:16
PROVIDERS: ADMIT Internal Medicine; ATTEND Psychiatry & Neurology Psychiatry
DX: F31.9 Bipolar disorder, unspecified (principal); A08.11 Acute gastroenteropathy due to Norwalk agent; R45.851 Suicidal ideations; Z91.148 Patient's other noncompliance with medication regimen for other reason; E11.65 Type 2 diabetes mellitus with hyperglycemia; F43.23 Adjustment disorder with mixed anxiety and depressed mood; F60.2 Antisocial personality disorder; F43.10 Post-traumatic stress disorder, unspecified; Z56.0 Unemployment, unspecified; Z59.01 Sheltered homelessness; Z91.51 Personal history of suicidal behavior; E78.5 Hyperlipidemia, unspecified; F17.200 Nicotine dependence, unspecified, uncomplicated; Z79.4 Long term (current) use of insulin; Z79.899 Other long term (current) drug therapy; G47.00 Insomnia, unspecified; Z91.52 Personal history of nonsuicidal self-harm

== ENCOUNTER 2024-10-30 11:57 | Emergency (ER) | payer MEDICAID, OTHER ==
[~2024-10-30] VITALS: Ht 170.2 cm; Wt 76.9 kg
[~2024-10-30 11:57] MED LIST changes: +ABIL10TA9 PO; +LANTINJ4 SC; +LOPE2CA PO; +SEMA1PEN2 SQ; +SERT50TA29 PO
[2024-10-30 12:35] LABS: KETONE, URINE AUTO RFX NEGATIVE (NEGATIVE); LEUKOCYTE ESTERASE UR AUTO RFX NEGATIVE (NEGATIVE); MUCUS, URINE RFX SMALL (NEGATIVE); NITRITE, URINE AUTO RFX NEGATIVE (NEGATIVE); RBC, URINE AUTO RFX 0 /HPF (0-3); SQUAM EPITHELIAL CELL UR AURFX 1 /HPF (0-6); WBC, URINE AUTO RFX 0 /HPF (0-3)
[2024-10-30] MEDS: fentaNYL 100 MCG/2 ML INJECTION IV ONE (13:26)
[2024-10-30] MEDS: ACETAMINOPHEN *IV* 1,000 MG in IV 1 EA IV ONE (13:26)
[2024-10-30] MEDS: NS (Normal Saline) 0.9% 1,000 ML IV ONE (13:35)
[2024-10-30 13:47] LABS: Trichomonas vaginalis (AMP) NOT DETECTED (NEGATIVE)
[2024-10-30 13:50] LABS: BASO # 0.1 10^3/uL (0.0-0.2); BASO % 0.7 % (0.0-1.0); EOS # 0.1 10^3/uL (0.0-0.5); EOS % 1.6 % (0.0-3.0); HEMATOCRIT 44.3 % (42.0-52.0); HEMOGLOBIN 14.4 g/dl (13.5-17.5); LYMPH # 2.2 10^3/uL (1.5-5.0); LYMPH % 25.5 % (24.0-44.0); MEAN CORPUSCULAR HGB CONC 32.5 g/dl (32.0-36.5); MEAN CORPUSCULAR VOLUME 86.2 fl (80.0-96.0); MONO # 0.6 10^3/uL (0.0-0.8); MONO % 7.4 % (2.0-8.0); NEUTROPHILS # 5.5 10^3/uL (1.5-8.5); NEUTROPHILS % 64.5 % (36.0-66.0); PLATELET COUNT, AUTOMATED 333 10^3/uL (150-450); RED BLOOD COUNT 5.14 10^6/uL (4.30-6.10); WHITE BLOOD COUNT 8.6 10^3/uL (4.0-10.0)
[2024-10-30 14:02] LABS: ERYTHROCYTE SEDIMENTATION RATE 20 mm/hr (0-15)
[2024-10-30 14:11] LABS: GC DNA AMPLIFICATION NEGATIVE (NEGATIVE)
[2024-10-30 14:23] LABS: BLOOD UREA NITROGEN 9 MG/DL (9-23); C REACTIVE PROTEIN QUANTITATIV < 0.50 MG/DL (<1.0); CALCIUM LEVEL 8.7 MG/DL (8.5-10.1); CARBON DIOXIDE LEVEL 28 MMOL/L (20-31); CHLORIDE LEVEL 103 MMOL/L (98-107); CREATININE FOR GFR 0.58 MG/DL (0.70-1.30); GLOMERULAR FILTRATION RATE > 90.0 (>60); GLUCOSE, FASTING 316 MG/DL (60-100); SODIUM LEVEL 141 MMOL/L (136-145)
[2024-10-30] MEDS ORDERED: ISOVUE-370 76% 100ML VIAL As Ordered ONE (14:40)
[2024-10-30] MEDS ORDERED: LIDOCAINE W/EPINEPHRINE 1% 20ML VIAL As Ordered ONE (15:31)
[2024-10-30] MEDS ORDERED: BACT800T5 PO (15:38)
[2024-10-30] MEDS: BACTRIM 160MG/800MG DS TAB PO ONE (15:47)
[2024-10-30 15:52] VITALS: BP 141/89; TEMP 96.8; O2SAT 98
== END 2024-10-30 16:02 | disposition home or self-care (01) ==
LOC: M ED 11:57
DX: N50.811 Right testicular pain (principal); E11.65 Type 2 diabetes mellitus with hyperglycemia; N49.2 Inflammatory disorders of scrotum; F41.9 Anxiety disorder, unspecified; Z79.4 Long term (current) use of insulin; Z79.84 Long term (current) use of oral hypoglycemic drugs; Z79.899 Other long term (current) drug therapy
CPT/HCPCS: 72193; 76870; 80048; 81001; 83605; 85025; 85652; 86140; 87661; 87810; 87850; 96374; 96375; 99284; J0131; J3010; Q9967

== ENCOUNTER 2024-11-04 20:16 | Inpatient (IN) | payer OTHER ==
[~2024-11-04] VITALS: Ht 170.2 cm; Wt 71.2 kg
[~2024-11-04 20:16] MED LIST changes: +BACT800T5 PO
[2024-11-04 21:23] LABS: HEMATOCRIT 42.3 % (42.0-52.0); HEMOGLOBIN 13.7 g/dl (13.5-17.5); MEAN CORPUSCULAR HEMOGLOBIN 28.1 pg (27.0-33.0); MEAN CORPUSCULAR HGB CONC 32.4 g/dl (32.0-36.5); MEAN CORPUSCULAR VOLUME 86.9 fl (80.0-96.0); PLATELET COUNT, AUTOMATED 318 10^3/uL (150-450); RED BLOOD COUNT 4.87 10^6/uL (4.30-6.10); WHITE BLOOD COUNT 8.5 10^3/uL (4.0-10.0)
[2024-11-04 21:50] LABS: ETHYL ALCOHOL (ETHANOL) 0.006 % (0.000-0.010); SALICYLATE LEVEL < 3.0 MG/DL (<30)
[2024-11-04 21:51] LABS: ALBUMIN 3.3 G/DL (3.2-5.2); ALKALINE PHOSPHATASE 106 U/L (40-129); ALT/SGPT 17 U/L (7.0-40); AST/SGOT 11 U/L (<34); BILIRUBIN,DIRECT < 0.1 MG/DL (<0.4); BILIRUBIN,TOTAL 0.3 MG/DL (0.3-1.2); BLOOD UREA NITROGEN 11 MG/DL (9-23); CALCIUM LEVEL 8.8 MG/DL (8.5-10.1); CARBON DIOXIDE LEVEL 28 MMOL/L (20-31); CHLORIDE LEVEL 104 MMOL/L (98-107); CREATININE FOR GFR 0.69 MG/DL (0.70-1.30); GLOMERULAR FILTRATION RATE > 90.0 (>60); GLUCOSE, FASTING 253 MG/DL (60-100); SODIUM LEVEL 142 MMOL/L (136-145); TOTAL PROTEIN 6.2 G/DL (5.7-8.2)
[2024-11-04 21:53] LABS: THYROID STIMULATING HORMONE 1.456 uIU/ML (0.55-4.78)
[2024-11-04 22:31] LABS: AMPHETAMINES LEVEL URINE NEGATIVE (NEGATIVE)
[2024-11-04 22:32] LABS: BARBITURATES URINE NEGATIVE (NEGATIVE); BENZODIAZEPINES URINE NEGATIVE (NEGATIVE); CANNABINOIDS URINE NEGATIVE (NEGATIVE); COCAINE METABOLITE URINE NEGATIVE (NEGATIVE); METHADONE URINE NEGATIVE (NEGATIVE); OPIATES URINE NEGATIVE (NEGATIVE); PHENCYCLIDINE URINE NEGATIVE (NEGATIVE)
[2024-11-04] MEDS ORDERED: diphenhydrAMINE 25MG CAP PO PRN (23:25)
[2024-11-04] MEDS ORDERED: MAALOX 30 ML SUSP *UDC PO PRN (23:25)
[2024-11-04] MEDS ORDERED: MOM 30ML SUSPENSION UDC PO PRN (23:25)
[2024-11-05] MEDS ORDERED: HYDR50TA70 PO (00:26)
[2024-11-05] MEDS ORDERED: SERT-141 PO (00:26)
[2024-11-05] MEDS ORDERED: TRAZ-257 PO (00:26)
[2024-11-05] MEDS ORDERED: ARIP10TA63 PO (00:26)
[2024-11-05] MEDS ORDERED: HOME MED LIST COMPLETE! XX SCH (00:30)
[2024-11-05 00:56] VITALS: BP 140/80; TEMP 97.1; O2SAT 100
[2024-11-05] MEDS: traZODone 50 MG TAB PO PRN (01:01)
[2024-11-05] MEDS: ACETAMINOPHEN 325 MG TAB PO PRN (01:02)
[2024-11-05 06:19] VITALS: BP 134/71; TEMP 97.6; O2SAT 96
[2024-11-05] MEDS ORDERED: GLUCAGON INJ 1MG VIAL SC PRN (11:25)
[2024-11-05] MEDS ORDERED: GLUCOSE 4 GM CHEW PO PRN (11:25)
[2024-11-05] MEDS ORDERED: DEXTROSE 50% 50ML SYRINGE IV PRN (11:25)
[2024-11-05] MEDS: metFORMIN XR 500MG TAB *GLUCOPHAGE XR PO SCH (12:04)
[2024-11-05] MEDS: NICOTINE 21MG/24HR 1 EA TRANSDERMAL TD SCH (12:04)
[2024-11-05] MEDS: INSULIN LISPRO (NovoLOG) PER UNIT SC SCH ×2 (12:09→20:32)
[2024-11-05] MEDS: SERTRALINE 100 MG TAB PO SCH (15:03)
[2024-11-05] MEDS: ARIPiprazole 10 MG TAB PO SCH (15:03)
[2024-11-05 16:38] VITALS: BP 150/83; TEMP 97.1; O2SAT 97
[2024-11-05] MEDS: LanTUS (INSULIN GLARGINE INJ) 1 UNITS/0.01 ML SC SCH (20:33)
[2024-11-06 06:36] VITALS: BP 152/78; TEMP 98.2; O2SAT 97
[2024-11-06] MEDS: IBUPROFEN 400MG TAB PO PRN (14:51)
[2024-11-06 14:54] VITALS: BP 152/78; TEMP 98.2; O2SAT 97
[2024-11-06 15:10] VITALS: BP 148/80; TEMP 97.5; O2SAT 99
[2024-11-07 06:46] VITALS: BP 123/67; TEMP 98.1; O2SAT 97
[2024-11-07 15:49] VITALS: BP 146/84; TEMP 97.5; O2SAT 98
[2024-11-08 06:48] VITALS: BP 126/80; TEMP 97.8; O2SAT 98
[2024-11-08 16:14] VITALS: BP 131/72; TEMP 98.2; O2SAT 99
[2024-11-09 06:50] VITALS: BP 111/69; TEMP 98.3; O2SAT 98
[2024-11-09] MEDS ORDERED: NICOTINE 21MG/24HR 1 EA TRANSDERMAL TD PRN (11:50)
[2024-11-09 15:05] VITALS: BP 145/75; TEMP 97.5; O2SAT 99
[2024-11-10 06:15] VITALS: BP 110/75; TEMP 97.7; O2SAT 98
[2024-11-10 15:14] VITALS: BP 144/78; TEMP 97.9; O2SAT 99
[2024-11-11 06:52] VITALS: BP 137/72; TEMP 98.1; O2SAT 98
[2024-11-11 16:00] VITALS: BP 135/71; TEMP 98.1; O2SAT 98
[2024-11-12 06:49] VITALS: BP 131/72; TEMP 98.3; O2SAT 96
[2024-11-12] MEDS ORDERED: ZOLO100T PO (08:31)
[2024-11-12] MEDS ORDERED: ABIL10TA9 PO (08:31)
[2024-11-12] MEDS ORDERED: TRAZ-252 PO (08:31)
== END 2024-11-12 12:10 | disposition home or self-care (01) | DRG 751 ==
LOC: M ED 20:16 → M ED INP 23:22 → M PSY 11-05 00:45
PROVIDERS: ADMIT Psychiatry & Neurology Neurology; ATTEND Psychiatry & Neurology Neurology
DX: F33.1 Major depressive disorder, recurrent, moderate (principal); F41.9 Anxiety disorder, unspecified; E11.9 Type 2 diabetes mellitus without complications; E78.5 Hyperlipidemia, unspecified; R45.851 Suicidal ideations; R45.850 Homicidal ideations; F17.210 Nicotine dependence, cigarettes, uncomplicated; F60.2 Antisocial personality disorder; Z91.52 Personal history of nonsuicidal self-harm; Z91.51 Personal history of suicidal behavior; Z79.4 Long term (current) use of insulin; Z79.84 Long term (current) use of oral hypoglycemic drugs; Z79.899 Other long term (current) drug therapy